=== PATIENT | female | born 1960 | race Caucasian/White ===

== ENCOUNTER 2016-09-20 06:48 | Observation (INO) ==
[2016-09-20] MEDS ORDERED: Ondansetron 4 MG/2 ML VIAL IVP ONE (07:11)
[2016-09-20] MEDS ORDERED: *HR* Morphine 2 MG/ML SYRINGE IVP ONE (07:11)
--- NOTE | 2016-09-20 07:15 | Emergency Department Note ---
Disposition Clinical Impression: Chest pain Qualifiers: Chest pain type: precordial pain Qualified Code(s): R07.2 - Precordial pain Disposition: Admitted As Inpatient Condition: Good Referrals: Nasreen Sofia CNP [Primary Care Provider] - Forms: ED Satisfaction Letter Chest Pain HPI - General Chief Complaint: ED Chest Pain Stated Complaint: chest/back pain Time Seen by Provider: 09/20/16 07:10 Source: patient, EMS Mode of arrival: EMS Limitations: no limitations Vital Signs Reviewed: Yes Nursing Notes Reviewed: Yes - History of Present Illness HPI Narrative: 56-year-old female who presents with chest pain that woke her up from sleep at 1 AM this morning. The pain is substernal and left sided. It radiates through to her back between her shoulder blades. It was initially somewhat sharp, it is now pressure-like. She states it was a level "20" when it started. She states she has taken for some sublingual nitroglycerin, now the pain is pressure -like and is a level II. No shortness of breath. No nausea or diaphoresis. She has a history of coronary artery disease and myocardial infarction. The pain feels like her previous cardiac chest pain. 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 The patient states she has not had a stress test and "a long time". She states it been more than 5 years. She does her exactly when. Pt complaint: chest pain Onset (ago): hour(s) (6) Duration: constant Onset: during rest Pain Location: substernal, left chest Severity: mild Severity scale (1-10): 3 Quality: tightness, sharp Improves with: nitroglycerin Worsens with: nothing Context: other (Coronary artery disease, coronary artery bypass graft, myocardial infarction.) Associated symptoms: Denies: nausea, diaphoresis, dyspnea Treatments prior to arrival chest pain: nitroglycerin - Related Data Home Medications Medication Instructions Recorded Confirmed Atorvastatin [Lipitor] 40 mg PO HS 09/20/16 09/20/16 Cephalexin [Keflex] 500 mg PO TID 09/20/16 09/20/16 Cholecalciferol (Vitd3)/Vit K2 [D3 1 each PO DAILY 09/20/16 09/20/16 + K2 Dots 1,000 Units Tab] Folic Acid 1 mg PO DAILY 09/20/16 09/20/16 Hydroxyzine HCl 25 mg PO DAILY 09/20/16 09/20/16 Allergies Allergy/AdvReac Type Severity Reaction Status Date / Time No Known Allergies Allergy Verified 04/16/15 14:55 All systems ED: reviewed and negative except as stated. Constitutional: Denies: fever, chills ENT ED: Denies: ear pain, throat pain Cardiovascular: Reports: chest pain. Denies: palpitations Respiratory: Denies: cough, dyspnea, wheezes Gastrointestinal: Denies: abdominal pain, nausea, vomiting Genitourinary: Denies: urgency, dysuria Musculoskeletal: Reports: back pain Neurological: Denies: headache, weakness, numbness, paresthesias Chest Pain PMH - Past Medical History Medical history: Reports: coronary artery disease, diabetes, hyperlipidemia, hypertension, myocardial infarction Surgical history: Reports: appendectomy Psychiatric history: Reports: anxiety, depression, prior suicide attempt, previous psychiatric hospitalization DEBONER history: Reports: no DEBONER history, other - Social History Smoking Status: Current every day smoker Alcohol use: Reports: rarely Drug use: Reports: marijuana Physical Exam - General Limitations: no limitations General appearance: alert, in no apparent distress - Head Head exam: atraumatic, normocephalic - Eye Eye exam: Present: PERRL, EOMI. Absent: scleral icterus, conjunctival injection - ENT ENT exam: normal oropharynx, mucous membranes moist - Neck Neck exam: Present: normal inspection, full ROM, trachea midline. Absent: tenderness, lymphadenopathy, thyromegaly - Chest Chest inspection: Present: normal inspection, symmetric chest wall rise. Absent : tenderness - Respiratory Respiratory exam: Present: normal lung sounds bilaterally. Absent: respiratory distress, wheezes - Cardiovascular Cardiovascular exam: Present: regular rate, normal rhythm, normal heart sounds - Abdominal Exam Abdominal exam: Present: soft, Non-Tender, normal bowel sounds. Absent: organomegaly, mass - Extremities Exam Extremities exam: Present: normal inspection, full ROM, normal capillary refill. Absent: tenderness, pedal edema, calf tenderness - Back Exam Back exam: Absent: CVA tenderness (R), CVA tenderness (L) - Neurological Exam Neurological exam: Present: alert, oriented X3. Absent: motor sensory deficit - Psychiatric Psychiatric exam: Present: normal affect, normal mood - Skin Skin exam: Present: warm, dry, intact, normal color. Absent: cyanosis, diaphoresis Course Course Narrative: 0426: With return of all testing, care has been discussed with the patient, her and Dr. Ashraf. Verbal orders have been obtained for observation at this facility. She remains in stable condition without significant ongoing pain. Vital Signs Temperature 98.2 F 09/20/16 06:52 Pulse Rate 84 09/20/16 06:52 Respiratory Rate 18 09/20/16 06:52 Blood Pressure 138/95 09/20/16 06:52 O2 Sat by Pulse Oximetry 98 09/20/16 06:52 Temperature 98.2 F 09/20/16 06:53 Pulse Rate 101 09/20/16 10:52 Respiratory Rate 18 09/20/16 10:52 Blood Pressure 142/90 09/20/16 10:52 O2 Sat by Pulse Oximetry 98 09/20/16 10:52 Oxygen Delivery Oxygen Delivery Room Air Chest Pain - MDM Narrative Medical decision making narrative: Differential is not limited to unstable angina, myocardial infarction, chest wall pain, pneumothorax, pulmonary embolus, pleurisy. - Differential Diagnosis Likely: stable angina, unstable angina pectoris, atypical chest pain, chest pain - Lab Data Lab results reviewed: Yes I reviewed the patient's lab results. Result diagrams: 09/20/16 07:17 09/20/16 07:17 Lab Results 09/20/16 09/20/16 09/20/16 Range/Units 07:17 07:17 07:17 WBC 13.1 H (4.3-11.1) K/mcL RBC 5.17 H (3.82-4.97) M/mcL Hgb 14.8 (11.5-15.4) g/dL Hct 42.3 (35.3-44.9) % MCV 81.8 L (83.0-100.0) fL MCH 28.6 (28.0-33.3) pg MCHC 35.0 (31.6-35.5) g/dL RDW 14.2 (11.5-14.5) % Plt Count 412 H (140-400) K/mcL MPV 10.6 (9.4-12.4) fL Immature Gran % 0.2 (0-4) % Seg Neutrophils % 53.0 % Lymphocytes % 32.5 % Monocytes % 8.5 % Eosinophils % 5.1 % Basophils % 0.7 % Neutrophils # 6.9 (1.6-8.9) K/mcL Lymphocytes # 4.3 (0.6-4.6) K/mcL Monocytes # 1.1 (0.0-1.3) K/mcL Eosinophils # 0.7 H (0.0-0.6) K/mcL Basophils # 0.1 (0.0-0.2) K/mcL PT (9.4-12.1) Seconds INR D-Dimer 1544 H (0-500) ng/mLFEU Sodium 132 L (136-145) mEq/L Potassium 3.5 (3.5-4.5) mEq/L Chloride 89 L (98-109) mEq/L Carbon Dioxide 29 (19-29) mEq/L BUN 13 (7-20) mg/dL Creatinine 0.67 (0.57-1.11) mg/dL Est GFR ( Amer) > 60 (> 60) Est GFR (Non-Af Amer) > 60 (> 60) BUN/Creatinine Ratio 19 (6-26) Glucose 118 H (70-99) mg/dL Calculated Osmolality 275 L (280-300) Calcium 10.3 (8.6-10.8) mg/dL Total Bilirubin 0.3 (0.2-1.2) mg/dL AST 12 (5-34) Units/L ALT 12 (0-55) Units/L Alkaline Phosphatase 93 (38-126) Units/L Troponin I (0-0.03) ng/mL B-Natriuretic Peptide (0-100) pg/mL Serum Total Protein 8.2 (6.0-8.3) g/dL Albumin 3.5 (3.5-5.0) g/dL Globulin 4.7 H (2.4-3.5) g/dL Albumin/Globulin Ratio 0.7 L (1.1-2.2) 09/20/16 09/20/16 09/20/16 Range/Units 07:17 07:17 07:17 WBC (4.3-11.1) K/mcL RBC (3.82-4.97) M/mcL Hgb (11.5-15.4) g/dL Hct (35.3-44.9) % MCV (83.0-100.0) fL MCH (28.0-33.3) pg MCHC (31.6-35.5) g/dL RDW (11.5-14.5) % Plt Count (140-400) K/mcL MPV (9.4-12.4) fL Immature Gran % (0-4) % Seg Neutrophils % % Lymphocytes % % Monocytes % % Eosinophils % % Basophils % % Neutrophils # (1.6-8.9) K/mcL Lymphocytes # (0.6-4.6) K/mcL Monocytes # (0.0-1.3) K/mcL Eosinophils # (0.0-0.6) K/mcL Basophils # (0.0-0.2) K/mcL PT 12.5 H (9.4-12.1) Seconds INR 1.2 D-Dimer (0-500) ng/mLFEU Sodium (136-145) mEq/L Potassium (3.5-4.5) mEq/L Chloride (98-109) mEq/L Carbon Dioxide (19-29) mEq/L BUN (7-20) mg/dL Creatinine (0.57-1.11) mg/dL Est GFR ( Amer) (> 60) Est GFR (Non-Af Amer) (> 60) BUN/Creatinine Ratio (6-26) Glucose (70-99) mg/dL Calculated Osmolality (280-300) Calcium (8.6-10.8) mg/dL Total Bilirubin (0.2-1.2) mg/dL AST (5-34) Units/L ALT (0-55) Units/L Alkaline Phosphatase (38-126) Units/L Troponin I 0.00 (0-0.03) ng/mL B-Natriuretic Peptide < 10 (0-100) pg/mL Serum Total Protein (6.0-8.3) g/dL Albumin (3.5-5.0) g/dL Globulin (2.4-3.5) g/dL Albumin/Globulin Ratio (1.1-2.2) 09/20/16 Range/Units 09:13 WBC (4.3-11.1) K/mcL RBC (3.82-4.97) M/mcL Hgb (11.5-15.4) g/dL Hct (35.3-44.9) % MCV (83.0-100.0) fL MCH (28.0-33.3) pg MCHC (31.6-35.5) g/dL RDW (11.5-14.5) % Plt Count (140-400) K/mcL MPV (9.4-12.4) fL Immature Gran % (0-4) % Seg Neutrophils % % Lymphocytes % % Monocytes % % Eosinophils % % Basophils % % Neutrophils # (1.6-8.9) K/mcL Lymphocytes # (0.6-4.6) K/mcL Monocytes # (0.0-1.3) K/mcL Eosinophils # (0.0-0.6) K/mcL Basophils # (0.0-0.2) K/mcL PT (9.4-12.1) Seconds INR D-Dimer (0-500) ng/mLFEU Sodium (136-145) mEq/L Potassium (3.5-4.5) mEq/L Chloride (98-109) mEq/L Carbon Dioxide (19-29) mEq/L BUN (7-20) mg/dL Creatinine (0.57-1.11) mg/dL Est GFR ( Amer) (> 60) Est GFR (Non-Af Amer) (> 60) BUN/Creatinine Ratio (6-26) Glucose (70-99) mg/dL Calculated Osmolality (280-300) Calcium (8.6-10.8) mg/dL Total Bilirubin (0.2-1.2) mg/dL AST (5-34) Units/L ALT (0-55) Units/L Alkaline Phosphatase (38-126) Units/L Troponin I 0.01 (0-0.03) ng/mL B-Natriuretic Peptide (0-100) pg/mL Serum Total Protein (6.0-8.3) g/dL Albumin (3.5-5.0) g/dL Globulin (2.4-3.5) g/dL Albumin/Globulin Ratio (1.1-2.2) - Radiology Data Radiology results reviewed: Yes I reviewed the patient's radiology results. Impressions Chest X-Ray 09/20/16 07:11 IMPRESSION: No acute cardiopulmonary abnormality identified. D/ / Binh Nichole MD / Binh Nichole MD Interpreting Provider: Binh Nichole MD Chest CTA 09/20/16 08:15 IMPRESSION: No evidence of pulmonary embolism or acute pulmonary abnormality. D/ / Abraham Santiago MD / Abraham Santiago MD Interpreting Provider: Abraham Santiago MD - EKG Data EKG attestation: Yes I reviewed and interpreted this EKG. EKG results narrative: Sinus rhythm, rate of 78, age indeterminate septal infarct, no acute ST-T wave changes. Rhythm strip shows sinus rhythm with rate of 78, W[place] interval 169 ms, QRS of 82 ms with no other ectopy as interpreted by me. This is compared to tracing dated 04/16/15, no significant change. S.Artemio - MikaAKeonRKeon Transition of Care: Discussed with Dr. Arboleda at 0755. Situation: Demographics, MOA Background: Presenting Complaint, Relevant PMH, Meds, & Allergies Assessment: Vital Signs, Course and respsone to treatment, Exam Concerns, Pertinant Lab Results, Outstanding Labs Recommendation: Recommendation based on pending studies, treatments, or consults S.B.A.RKeon Report Given to: Dr. Nkechi Roberts Repor Time: 07:55
[2016-09-20 07:24] LABS: Basophils # 0.1 K/mcL (0.0-0.2); Basophils % 0.7 %; Eosinophils # 0.7 K/mcL (0.0-0.6); Eosinophils % 5.1 %; Hematocrit 42.3 % (35.3-44.9); Hemoglobin 14.8 g/dL (11.5-15.4); Immature Granulocytes % 0.2 % (0-4); Lymphocytes # 4.3 K/mcL (0.6-4.6); Lymphocytes % 32.5 %; Mean Corpuscular Hemoglobin 28.6 pg (28.0-33.3); Mean Corpuscular Volume 81.8 fL (83.0-100.0); Mean Platelet Volume 10.6 fL (9.4-12.4); Monocytes # 1.1 K/mcL (0.0-1.3); Monocytes % 8.5 %; Neutrophils # 6.9 K/mcL (1.6-8.9); Platelet Count 412 K/mcL (140-400); Red Blood Count 5.17 M/mcL (3.82-4.97); Red Cell Distribution Width 14.2 % (11.5-14.5)
[2016-09-20 07:28] LABS: INR 1.2; Prothrombin Time 12.5 Seconds (9.4-12.1)
[2016-09-20 08:00] LABS: Alanine Aminotransferase 12 Units/L (0-55); Albumin 3.5 g/dL (3.5-5.0); Albumin/Globulin Ratio 0.7 (1.1-2.2); Alkaline Phosphatase 93 Units/L (38-126); Aspartate Amino Transferase 12 Units/L (5-34); BUN/Creatinine Ratio 19 (6-26); Bilirubin,Total 0.3 mg/dL (0.2-1.2); Blood Urea Nitrogen 13 mg/dL (7-20); Calcium 10.3 mg/dL (8.6-10.8); Carbon Dioxide 29 mEq/L (19-29); Chloride 89 mEq/L (98-109); Globulin 4.7 g/dL (2.4-3.5); Glucose 118 mg/dL (70-99); Osmolality,Calculated 275 (280-300); Potassium 3.5 mEq/L (3.5-4.5); Sodium 132 mEq/L (136-145); Total Protein 8.2 g/dL (6.0-8.3); eGFR For African Americans > 60 (> 60); eGFR For Non-African Americans > 60 (> 60)
[2016-09-20] MEDS ORDERED: Naloxone 0.4 MG/ML INJ IVP PRN (11:57)
[2016-09-20] MEDS ORDERED: Acetaminophen 325 MG TABLET PO PRN (11:57)
[2016-09-20] MEDS ORDERED: Ondansetron 4 MG/2 ML VIAL IVP PRN (11:57)
[2016-09-20] MEDS ORDERED: MOM Conc 10 ML UD.LIQ PO PRN (11:57)
--- NOTE | 2016-09-20 17:17 | Internal Med History&Physical ---
Date of Encounter: 09/20/16 Time of Encounter: 16:45 Assessment and Plan (1) Chest pain Current visit: Yes Status: Acute Repeat cardiac enzymes have been ordered through emergency room. Chest CTA was unremarkable. Further workup will be done as needed. Qualifiers: Chest pain type: precordial pain Qualified Code(s): R07.2 - Precordial pain (2) Tobacco abuse Current visit: Yes Status: Chronic Room air oxymetry will be ordered prior to discharge. Internal Medicine - H&P: HPI Chief complaint: Chest pain Admitted From: Home Plans for Post Hospital Care: Home History of present illness: Ms. Ramos is a 56 year old female who came to emergency room stating she had a chest pain approximately 0100 that awakened her from sleep. She describes it as a sharp sensation in her mid left chest area. She took a nitroglycerin pill with improvement but not completely resolution. She sat in a chair and used 3 more nitroglycerin pills over the next few hours. She decided to come to emergency room when the pain did not completely resolve. She was evaluated and admitted to [facility] for ongoing care needs. She states the discomfort now is no longer sharp but feels more like a "pressure ". There was considerable dyspnea associated with the discomfort at time of onset but that has resolved. There was no significant cough. Her cardiovascular history is significant for hypertension. She has known ASHD status post MD 2001 followed by a CABG surgery. She does not know how many coronary vessels were bypassed. She believes her most recent heart catheter was approximately 2011 without recommendation for further intervention. She thinks she has a diagnosis of CHF. She had left carotid endarterectomy several years ago. She denies DVT or pulmonary embolus. Past Med Surg Social Fam HX - Past Medical History Medical history: coronary artery disease, diabetes, hyperlipidemia, hypertension , myocardial infarction Psychiatric history: anxiety, depression, prior suicide attempt, previous psychiatric hospitalization - Past Surgical History Surgical History: appendectomy - Social History Smoking Status: Current every day smoker Smokeless Tobacco Status: No Alcohol use: rarely Drug use: marijuana Internal Medicine - H&P: Meds Atorvastatin [Lipitor] 40 mg PO HS 09/20/16 [History] Cephalexin [Keflex] 500 mg PO TID 09/20/16 [History] Cholecalciferol (Vitd3)/Vit K2 [D3 + K2 Dots 1,000 Units Tab] 1 each PO DAILY [History] Folic Acid 1 mg PO DAILY 09/20/16 [History] Hydroxyzine HCl 25 mg PO DAILY 09/20/16 [History] Allergies No Known Allergies Allergy (Verified 04/16/15 14:55) All Systems PM: A 10-system review of systems was performed and is negative for pertinent findings except as documented above in the HPI. Review of systems: Gen.: She states her weight has been stable for many years Cardiovascular: As per history of present illness Respiratory: She smoked since age 9 up to 1 pack per day. She has not had PFTs and does not wear home oxygen GI: She denies disorders of her liver gallbladder or exocrine pancreas : She denies hematuria dysuria or kidney stones Neurologic: She states following a heart attack in 2001 she had cardiopulmonary arrest. She reports significant memory problems since then with gradual improvement over the years. She denies large distribution strokes or seizures Endocrine: She was diagnosed with DM 2 approximately 2015. She has hyperlipidemia but denies thyroid disease Hematology/oncology: She denies blood disorders cancers or anemia Psychiatric: She has anxiety and depression denies other mental health issues Musk skeletal: She denies arthritis gout or other bone joint or muscle disorders. - Constitutional Vitals: Temp Pulse Resp BP Pulse Ox 98.1 F 84 16 128/76 96 09/20/16 14:30 09/20/16 14:30 09/20/16 14:30 09/20/16 14:30 09/20/16 14:30 Exam: Gen.: She is a well-developed well-nourished female sitting in bed who appears in no acute distress at present time HEENT: Head is atraumatic and normocephalic. Eyes: EOMI. There is no scleral icterus. Mouth: Mucosa is moist. Neck: Supple and nontender. There is no thyromegaly or adenopathy noted. Heart: Regular without murmurs gallops or ectopics. Lungs: No wheezes or crackles are heard. Chest: She is nontender in her chest wall to palpation Abdomen: Soft and nontender. No masses or guarding are noted. Extremities: There is no cyanosis edema or clubbing noted. Dorsalis pedis and posterior tibial pulses are trace palpable bilaterally. Neurologic: Mental status: She is talkative and a good historian. Cranial nerves: Smile is symmetric. Forehead wrinkles bilaterally. Tongue protrudes midline. EOMI. Motor: There is no pronator drift. Cerebellar: Finger to nose is intact bilaterally. Skin: Warm and dry Internal Med - H&P Results - Labs CBC & Chem 7: 09/20/16 07:17 09/20/16 07:17 Labs: Cardiac Enzymes 09/20/16 Range/Units 15:24 Troponin I 0.01 (0-0.03) ng/mL
--- NOTE | 2016-09-20 18:15 | Electrocardiograph Report ---
[address] [place], [place] [address] Test Date: 2016-09-20 Pat Name: Claudia Ramos Department: [id number] Room: [facility] Gender: F Reamer Hand: [id number] : 1960 Requested By: Hernan Das Order Number: [id number] Reading MD: Juliana Jennings Measurements Intervals [place] Rate: 78 P: 52 TX: 169 QRS: 37 QRSD: 82 T: 85 QT: 378 QTc: 412 Interpretive Statements SINUS RHYTHM SEPTAL MYOCARDIAL INFARCTION, OF INDETERMINATE AGE Electronically Signed On 09-20-2016 18:13:48 EDT by Juliana Jennings
[2016-09-20] MEDS: Nitroglycerin 0.4 MG TAB.SUBL SL PRN ×2 (22:40→22:47)
[2016-09-21 07:46] VITALS: BP 143/87
[2016-09-21] MEDS ORDERED: Cholecalciferol (D-3) 1,000 UNIT TABLET PO SCH (09:00)
[2016-09-21] MEDS ORDERED: Folic Acid 1 MG TABLET PO SCH (09:00)
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
== END 2016-09-21 11:40 | disposition home or self-care (01) ==
LOC: EMEROOPIK 06:48 → INPPIK 06:48
PROVIDERS: ADMIT Internal Medicine; ATTEND Internal Medicine

== ENCOUNTER 2017-08-03 21:21 | Observation (INO) ==
[2017-08-03] MEDS ORDERED: Nitroglycerin 1 INCH/GM PACKET TP ONE (21:26)
[2017-08-03] MEDS ORDERED: *HR* Metoprolol 5 MG/5 ML VIAL IVP ONE (21:26)
--- NOTE | 2017-08-03 21:28 | Emergency Department Note ---
Disposition Clinical Impression: Chest pain Disposition: Transfer [facility] Condition: Fair Time of Disposition: 00:30 ([facility]) Chest Pain HPI - General Chief Complaint: ED Chest Pain Stated Complaint: chest pain Time Seen by Provider: 08/03/17 21:25 Source: patient, EMS Mode of arrival: EMS Limitations: no limitations Vital Signs Reviewed: Yes Nursing Notes Reviewed: Yes - History of Present Illness HPI Narrative: 57-year-old has been having intermittent substernal chest pain over the past couple of days no radiation neck or jaw patient states though she becomes a little nauseated with that she denies fever chills lightheadedness dizziness denies any actual syncope patient states that she feels very uneasy with this she denies any rashes or lesions Patient admits to being out of medications for at least 2 weeks or better and has not had diabetic hypertension or gastric medicines during this period of time had abrupt withdrawal of psych meds Pt complaint: chest pain Onset (ago): day(s) Duration: intermittent Onset: during rest, during exertion, awoke with symptoms Pain Location: substernal Severity: moderate Severity scale (1-10): 4 Quality: aching Improves with: nothing Worsens with: nothing Associated symptoms: Reports: nausea, diaphoresis, dyspnea. Denies: vomiting, sense of impending doom, syncope, palpitations, fever, cough, leg swelling Treatments prior to arrival chest pain: aspirin, nitroglycerin, oxygen - Related Data Home Medications Medication Instructions Recorded Confirmed Atorvastatin [Lipitor] 40 mg PO HS 01/28/17 01/28/17 BuPROPion [Wellbutrin] 100 mg PO DAILY 01/28/17 01/28/17 Cholecalciferol (Vitamin D3) 1,000 unit PO DAILY 01/28/17 01/28/17 [Vitamin D] Folic Acid 1 mg PO DAILY 01/28/17 01/28/17 Lisinopril [Zestril] 10 mg PO DAILY 01/28/17 01/28/17 Omeprazole 20 mg PO DAILY 01/28/17 01/28/17 metFORMIN [Glucophage] 1,000 mg PO HS 01/28/17 01/28/17 Previous Rx's Medication Instructions Recorded Acetaminophen/Butalbital/Caffe 1 each PO Q6HR #20 tablet 01/29/17 [Fioricet] Lisinopril [Zestril] 10 mg PO DAILY #14 tablet 01/29/17 Potassium Effervescent [Klyte] 25 meq PO DAILY #7 tablet.eff 01/29/17 Allergies Allergy/AdvReac Type Severity Reaction Status Date / Time No Known Allergies Allergy Verified 04/16/15 14:55 All systems ED: reviewed and negative except as stated. Review of Systems: As Per HPI Constitutional: Denies: fever, chills, weakness Eyes: Denies: eye pain, eye discharge ENT ED: Denies: ear pain, throat pain Cardiovascular: Reports: chest pain, syncope (near). Denies: palpitations Respiratory: Denies: cough, dyspnea Gastrointestinal: Denies: abdominal pain, nausea, vomiting Genitourinary: Denies: urgency, dysuria Musculoskeletal: Denies: back pain, neck pain Integumentary: Denies: rash, abrasion Neurological: Reports: weakness. Denies: headache Psychiatric: Denies: anxiety Endocrine: Denies: fatigue Hematological/Lymphatic: Denies: easy bleeding Allergic/Immunologic: Denies: facial swelling Chest Pain PMH - Past Medical History Medical history: Reports: coronary artery disease, diabetes, hyperlipidemia, hypertension, myocardial infarction Surgical history: Reports: appendectomy Psychiatric history: Reports: anxiety, depression, prior suicide attempt, previous psychiatric hospitalization TELETYPE TELEGRAPHER history: Reports: no TELETYPE TELEGRAPHER history, other - Social History Smoking Status: Current every day smoker Alcohol use: Reports: rarely Drug use: Reports: marijuana Physical Exam - General Limitations: no limitations General appearance: alert, in no apparent distress, anxious - Head Head exam: atraumatic, normocephalic, normal inspection - Eye Eye exam: Present: normal appearance, PERRL, EOMI - ENT ENT exam: normal exam, normal oropharynx, mucous membranes moist, TM's normal bilaterally, normal external ear exam - Neck Neck exam: Present: normal inspection, full ROM, trachea midline - Chest Chest inspection: Present: normal inspection, symmetric chest wall rise - Respiratory Respiratory exam: Present: normal lung sounds bilaterally - Cardiovascular Cardiovascular exam: Present: regular rate, normal rhythm, normal heart sounds - Abdominal Exam Abdominal exam: Present: soft, Non-Tender, normal bowel sounds. Absent: mass, pulsatile mass - Extremities Exam Extremities exam: Present: normal inspection, full ROM, normal capillary refill. Absent: tenderness, pedal edema, joint swelling - Expanded Upper Extremity Exam Shoulder exam: Present: normal inspection, full ROM Arm exam: Present: normal inspection, full ROM Elbow exam: Present: normal inspection, full ROM Forearm/Wrist exam: Present: normal inspection, full ROM Hand exam: Present: normal inspection, full ROM Neurosensory exam: Normal: radial nerve, ulnar nerve, median nerve Vascular exam: Normal: capillary refill, radial pulse, ulnar pulse - Expanded Lower Extremity Exam Hip/Pelvis exam: Present: normal inspection Upper leg exam: Present: normal inspection, full ROM Knee exam: Present: normal inspection, full ROM Lower leg exam: Present: normal inspection, full ROM Ankle exam: Present: normal inspection, full ROM Foot/toe exam: Present: normal inspection, full ROM Neurovascular/Tendon exam: Present: normal capillary refill, normal fine/light touch. Absent: motor deficit, sensory deficit, tendon deficit Gait: observed and normal - Back Exam Back exam: Present: normal inspection, full ROM. Absent: muscle spasm - Neurological Exam Neurological exam: Present: alert, oriented X3, CN II-XII intact, normal gait - Psychiatric Psychiatric exam: Present: normal affect, normal mood - Skin Skin exam: Present: warm, dry, intact, normal color Course Course Narrative: She was immediately seen and examined patient had received aspirin and nitroglycerin in route was completely asymptomatic upon presentation to the emergency room with the patient resting comfortably and having no further chest pain or discomfort sleeping intermittently she was admitted for observation to have serial enzymes rule out to make sure there is no underlying cardiac event agreeable with Dr. Ashraf Vital Signs Temperature 98.9 F 08/03/17 21:27 Pulse Rate 79 08/03/17 21:27 Respiratory Rate 15 08/03/17 21:27 Blood Pressure 139/99 08/03/17 21:27 O2 Sat by Pulse Oximetry 96 08/03/17 21:27 Temperature 98.2 F 08/04/17 03:38 Pulse Rate 61 08/04/17 03:38 Respiratory Rate 16 08/04/17 03:38 Blood Pressure 165/83 08/04/17 03:38 O2 Sat by Pulse Oximetry 100 08/04/17 03:38 Oxygen Delivery Oxygen Delivery Room Air Chest Pain - MDM Narrative Medical decision making narrative: Her pulmonary etiology pneumonia or bronchitis gallbladder - Differential Diagnosis Likely: atypical chest pain, st elevation myocardial infraction, costalchondritis, chest pain - Medical Records Medical records reviewed: Yes I reviewed the patient's medical records. - Lab Data Lab results reviewed: Yes I reviewed the patient's lab results. Result diagrams: 08/03/17 21:37 08/03/17 21:37 Lab Results 08/03/17 08/03/17 08/03/17 Range/Units 21:37 21:37 21:37 WBC 13.3 H (4.3-11.1) K/mcL RBC 5.25 H (3.82-4.97) M/mcL Hgb 15.0 (11.5-15.4) g/dL Hct 44.0 (35.3-44.9) % MCV 83.8 (83.0-100.0) fL MCH 28.6 (28.0-33.3) pg MCHC 34.1 (31.6-35.5) g/dL RDW 13.7 (11.5-14.5) % Plt Count 433 H (140-400) K/mcL MPV 10.8 (9.4-12.4) fL Immature Gran % 0.3 (0-4) % Seg Neutrophils % 54.3 % Lymphocytes % 36.2 % Monocytes % 6.3 % Eosinophils % 2.2 % Basophils % 0.7 % Neutrophils # 7.2 (1.6-8.9) K/mcL Lymphocytes # 4.8 H (0.6-4.6) K/mcL Monocytes # 0.8 (0.0-1.3) K/mcL Eosinophils # 0.3 (0.0-0.6) K/mcL Basophils # 0.1 (0.0-0.2) K/mcL PT 12.9 H (9.4-12.1) Seconds INR 1.2 APTT 35.2 (26.0-36.0) Seconds Sodium (136-145) mEq/L Potassium (3.5-5.1) mEq/L Chloride (98-107) mEq/L Carbon Dioxide (23-29) mEq/L BUN (6-20) mg/dL Creatinine (0.60-1.20) mg/dL Est GFR ( Amer) (> 60) Est GFR (Non-Af Amer) (> 60) BUN/Creatinine Ratio (6-26) Glucose (70-105) mg/dL Calculated Osmolality (280-300) Calcium (8.6-10.3) mg/dL Total Bilirubin (0.3-1.0) mg/dL AST (13-39) Units/L ALT (7-52) Units/L Alkaline Phosphatase (34-104) Units/L Troponin I (< 0.04) ng/mL Serum Total Protein (6.4-8.9) g/dL Albumin (3.5-5.7) g/dL Globulin (2.4-3.5) g/dL Albumin/Globulin Ratio (1.1-2.2) TSH (0.340-5.600) mcIU/mL 08/03/17 08/03/17 Range/Units 21:37 21:37 WBC (4.3-11.1) K/mcL RBC (3.82-4.97) M/mcL Hgb (11.5-15.4) g/dL Hct (35.3-44.9) % MCV (83.0-100.0) fL MCH (28.0-33.3) pg MCHC (31.6-35.5) g/dL RDW (11.5-14.5) % Plt Count (140-400) K/mcL MPV (9.4-12.4) fL Immature Gran % (0-4) % Seg Neutrophils % % Lymphocytes % % Monocytes % % Eosinophils % % Basophils % % Neutrophils # (1.6-8.9) K/mcL Lymphocytes # (0.6-4.6) K/mcL Monocytes # (0.0-1.3) K/mcL Eosinophils # (0.0-0.6) K/mcL Basophils # (0.0-0.2) K/mcL PT (9.4-12.1) Seconds INR APTT (26.0-36.0) Seconds Sodium 133 L (136-145) mEq/L Potassium 2.9 L (3.5-5.1) mEq/L Chloride 93 L (98-107) mEq/L Carbon Dioxide 28 (23-29) mEq/L BUN 18 (6-20) mg/dL Creatinine 0.68 (0.60-1.20) mg/dL Est GFR ( Amer) > 60 (> 60) Est GFR (Non-Af Amer) > 60 (> 60) BUN/Creatinine Ratio 26 (6-26) Glucose 152 H (70-105) mg/dL Calculated Osmolality 281 (280-300) Calcium 10.1 (8.6-10.3) mg/dL Total Bilirubin 0.3 (0.3-1.0) mg/dL AST 26 (13-39) Units/L ALT 28 (7-52) Units/L Alkaline Phosphatase 95 (34-104) Units/L Troponin I < 0.03 (< 0.04) ng/mL Serum Total Protein 7.9 (6.4-8.9) g/dL Albumin 4.1 (3.5-5.7) g/dL Globulin 3.8 H (2.4-3.5) g/dL Albumin/Globulin Ratio 1.1 (1.1-2.2) TSH 1.304 (0.340-5.600) mcIU/mL - Radiology Data Radiology results reviewed: Yes I reviewed the patient's radiology results. ITS Impressions Chest X-Ray 08/03/17 21:25 IMPRESSION: Stable portable study. D/ / Yari Vega Cha, MD / Yari Vega Cha, MD Interpreting Provider: Yari Vega Cha, MD - EKG Data EKG attestation: Yes I reviewed and interpreted this EKG. EKG results narrative: Sinus rhythm nonspecific T-wave changes rate 83 TN 155 QRS 82 QT 393 access 28 Heart Score - Score History: Slightly Suspicious Age: 45-65 Risk Factors: Equal/Greater than 3 risk factor or history of atherosclerotic disease Troponin: Less than normal limit Critical Care Time Critical Care Time: No
[2017-08-03 21:54] LABS: INR 1.2; Prothrombin Time 12.9 Seconds (9.4-12.1)
[2017-08-03 21:56] LABS: Basophils # 0.1 K/mcL (0.0-0.2); Basophils % 0.7 %; Eosinophils # 0.3 K/mcL (0.0-0.6); Eosinophils % 2.2 %; Immature Granulocytes % 0.3 % (0-4); Lymphocytes # 4.8 K/mcL (0.6-4.6); Lymphocytes % 36.2 %; Mean Corpuscular HGB Conc 34.1 g/dL (31.6-35.5); Mean Corpuscular Hemoglobin 28.6 pg (28.0-33.3); Mean Corpuscular Volume 83.8 fL (83.0-100.0); Mean Platelet Volume 10.8 fL (9.4-12.4); Monocytes # 0.8 K/mcL (0.0-1.3); Monocytes % 6.3 %; Neutrophils # 7.2 K/mcL (1.6-8.9); Platelet Count 433 K/mcL (140-400); Red Blood Count 5.25 M/mcL (3.82-4.97); Red Cell Distribution Width 13.7 % (11.5-14.5); Segmented Neutrophils % 54.3 %
[2017-08-03 22:05] LABS: Alanine Aminotransferase 28 Units/L (7-52); Albumin 4.1 g/dL (3.5-5.7); Albumin/Globulin Ratio 1.1 (1.1-2.2); Alkaline Phosphatase 95 Units/L (34-104); Aspartate Amino Transferase 26 Units/L (13-39); BUN/Creatinine Ratio 26 (6-26); Bilirubin,Total 0.3 mg/dL (0.3-1.0); Blood Urea Nitrogen 18 mg/dL (6-20); Calcium 10.1 mg/dL (8.6-10.3); Carbon Dioxide 28 mEq/L (23-29); Chloride 93 mEq/L (98-107); Globulin 3.8 g/dL (2.4-3.5); Glucose 152 mg/dL (70-105); Osmolality,Calculated 281 (280-300); Potassium 2.9 mEq/L (3.5-5.1); Sodium 133 mEq/L (136-145); Total Protein 7.9 g/dL (6.4-8.9); eGFR For Non-African Americans > 60 (> 60)
[2017-08-03] MEDS ORDERED: Ondansetron ODT 4 MG TAB.RAPDIS SL ONE (22:16)
[2017-08-03 22:20] LABS: Thyroid Stimulating Hormone 1.304 mcIU/mL (0.340-5.600)
[2017-08-04] MEDS ORDERED: Potassium Chloride Elixir 20 MEQ/15 ML UDC PO ONE (00:29)
[2017-08-04] MEDS ORDERED: Naloxone 0.4 MG/ML INJ IVP PRN (01:33)
[2017-08-04] MEDS ORDERED: Ondansetron 4 MG/2 ML VIAL IVP PRN (02:40)
[2017-08-04] MEDS: Nicotine 21 MG PATCH.TD24 TD SCH ×2 (03:58→10:49)
[2017-08-04 04:05] LABS: Basophils # 0.1 K/mcL (0.0-0.2); Basophils % 0.6 %; Eosinophils # 0.4 K/mcL (0.0-0.6); Eosinophils % 2.8 %; Hemoglobin 15.3 g/dL (11.5-15.4); Immature Granulocytes % 0.4 % (0-4); Lymphocytes % 32.2 %; Mean Corpuscular Hemoglobin 28.4 pg (28.0-33.3); Mean Corpuscular Volume 83.6 fL (83.0-100.0); Mean Platelet Volume 10.8 fL (9.4-12.4); Monocytes # 0.8 K/mcL (0.0-1.3); Monocytes % 6.7 %; Neutrophils # 7.2 K/mcL (1.6-8.9); Platelet Count 398 K/mcL (140-400); Red Blood Count 5.38 M/mcL (3.82-4.97); Red Cell Distribution Width 13.7 % (11.5-14.5); Segmented Neutrophils % 57.3 %
[2017-08-04 04:07] LABS: INR 1.2
[2017-08-04 04:09] LABS: Activated Partial Thrombo Time 35.4 Seconds (26.0-36.0)
[2017-08-04 05:39] LABS: Sodium 133 mEq/L (136-145)
[2017-08-04 05:40] LABS: BUN/Creatinine Ratio 27 (6-26); Blood Urea Nitrogen 17 mg/dL (6-20); Calcium 9.9 mg/dL (8.6-10.3); Carbon Dioxide 28 mEq/L (23-29); Chloride 96 mEq/L (98-107); Glucose 129 mg/dL (70-105); Osmolality,Calculated 279 (280-300); Potassium 3.7 mEq/L (3.5-5.1); eGFR For Non-African Americans > 60 (> 60)
[2017-08-04] MEDS ORDERED: *HR* Promethazine 25 MG/ML VIAL IVP PRN (06:29)
[2017-08-04] MEDS ORDERED: *HR* Morphine 2 MG/ML SYRINGE IVP ONE (06:29)
[2017-08-04] MEDS ORDERED: Nicotine 21 MG PATCH.TD24 TD SCH (09:00)
--- NOTE | 2017-08-04 12:48 | Internal Med History&Physical ---
Date of Encounter: 08/04/17 Time of Encounter: 12:05 Assessment and Plan (1) Chest pain Current visit: Yes Status: Acute Etiology not obvious. Repeat cardiac enzymes have been ordered. I will order d -dimer and proceed with chest CT since she has had the pain for 6-7 days. Qualifiers: Chest pain type: unspecified Qualified Code(s): R07.9 - Chest pain, unspecified (2) Leukocytosis Current visit: Yes Status: Chronic Review of past labs show frequent mild elevation of WBC. There is no left shift associated. Will not workup further at this time. Qualifiers: Leukocytosis type: unspecified Qualified Code(s): D72.829 - Elevated white blood cell count, unspecified Internal Medicine - H&P: HPI Chief complaint: Vomiting and chest/back pain Admitted From: Emergency Dept Plans for Post Hospital Care: Home History of present illness: Ms. Ramos is a 57 year old female who came to emergency room stating she had developed discomfort in her chest approximately July 29. The pain was constant and seemed to be worse and more noticeable in the evenings. She also had vomiting postprandially. There was no hematemesis. She reports a "pressure " sensation in her chest as well as back pain that was present. Following the and burial of her daughter's [id number] yesterday she came to emergency room. She was evaluated and admitted to [facility] floor for ongoing care needs. She states the pain is still present but has decreased in intensity. She denies previous similar pain. Her cardiovascular history is significant for hypertension and known ASHD status post ID [id number] followed by CABG surgery at a [facility]. She does not know how many vessels were bypassed. She believes her most recent heart catheter was approximately 2011 at [facility] without recommendation for further intervention. She thinks she has a diagnosis of CHF. She had left carotid endarterectomy remotely. She denies DVT or pulmonary embolus. Past Med Surg Social Fam HX - Past Medical History Medical history: coronary artery disease, diabetes, hyperlipidemia, hypertension , myocardial infarction Psychiatric history: anxiety, depression, prior suicide attempt, previous psychiatric hospitalization - Past Surgical History Surgical History: appendectomy - Social History Smoking Status: Current every day smoker Packs per day: 1 Smokeless Tobacco Status: No Alcohol use: rarely Drug use: marijuana - Family History Mother Living Status: Still Living Hx Family Endocrine Disorder: Yes (diabetes) Father Living Status: Hx Family Cancer: Yes Internal Medicine - H&P: Meds Atorvastatin [Lipitor] 40 mg PO HS 01/28/17 [History] BuPROPion [Wellbutrin] 100 mg PO DAILY 01/28/17 [History] Cholecalciferol (Vitamin D3) [Vitamin D] 1,000 unit PO DAILY 01/28/17 [History] Folic Acid 1 mg PO DAILY 01/28/17 [History] Lisinopril [Zestril] 10 mg PO DAILY 01/28/17 [History] Omeprazole 20 mg PO DAILY 01/28/17 [History] metFORMIN [Glucophage] 1,000 mg PO HS 01/28/17 [History] Acetaminophen/Butalbital/Caffe [Fioricet] 1 each PO Q6HR #20 tablet 01/29/17 [Rx ] Lisinopril [Zestril] 10 mg PO DAILY #14 tablet 01/29/17 [Rx] Potassium Effervescent [Klyte] 25 meq PO DAILY #7 tablet.eff 01/29/17 [Rx] 3 Allergy/AdvReac Type Severity Reaction Status Date / Time No Known Allergies Allergy Verified 04/16/15 14:55 All Systems PM: A 10-system review of systems was performed and is negative for pertinent findings except as documented above in the HPI. Review of systems: Gen.: Her weight has decreased from 81.647 kg on 09/20/2016 to 71.866 kg today Cardiovascular: As per history of present illness Respiratory: She smoked since age 9 up to 1 pack per day. She has not had PFTs and does not wear home oxygen GI: She denies disorders of her liver gallbladder or exocrine pancreas : She denies hematuria dysuria or kidney stones Neurologic: She states following a heart attack in 2002 she had cardiopulmonary arrest. She reports significant memory problems since resuscitation with gradual improvement over the years. She denies large distribution strokes or seizures Endocrine: She was diagnosed with DM 2 approximately 2016. She has hyperlipidemia but denies thyroid disease Hematology/oncology: She denies blood disorders cancers or anemia Psychiatric: She has anxiety and depression but denies other mental health issues Musk skeletal: She denies arthritis gout or other bone joint or muscle disorders. - Constitutional Vitals: Temp Pulse Resp BP Pulse Ox 97.4 F L 72 12 158/85 99 08/04/17 07:10 08/04/17 07:10 08/04/17 07:10 08/04/17 07:10 08/04/17 07:10 Exam: Gen.: She is a well-developed well-nourished female resting comfortably in bed who appears in no acute distress HEENT: Head is atraumatic and normocephalic. Eyes: EOMI. There is no sclerae icterus. Mouth: Mucosa is moist. Neck: Supple and nontender. There is no thyromegaly or adenopathy noted. She has a well-healed left carotid endarterectomy scar. Heart: Regular without murmurs gallops or ectopics Chest: She has minimal tenderness on costosternal joint compression. Lungs: No wheezes or crackles are heard. Abdomen: There is mild tenderness in the epigastric area to palpation. No masses or guarding are noted. Extremities: There is no cyanosis edema or clubbing noted. Dorsalis pedis and posterior tibial pulses are trace palpable bilaterally. Neurologic: Mental status: She is talkative and a fair historian. She does not remember some details of her history. Cranial nerves: Smile is symmetric. Forehead wrinkles bilaterally. Tongue protrudes midline. EOMI. Motor: There is no pronator drift. Cerebellar: Finger to nose is intact bilaterally. Skin: Warm and dry Internal Med - H&P Results - Labs CBC & Chem 7: 08/04/17 03:25 08/04/17 03:25 Labs: Short CBC 08/04/17 Range/Units 03:25 WBC 12.5 H (4.3-11.1) K/mcL Hgb 15.3 (11.5-15.4) g/dL Hct 45.0 H (35.3-44.9) % Plt Count 398 (140-400) K/mcL Neutrophils # 7.2 (1.6-8.9) K/mcL BMP 08/04/17 03:25 Sodium 133 L Potassium 3.7 D Chloride 96 L Carbon Dioxide 28 BUN 17 Creatinine 0.63 Glucose 129 H Calcium 9.9 Cardiac Enzymes 08/04/17 08/04/17 Range/Units 03:25 10:40 Troponin I < 0.03 < 0.03 (< 0.04) ng/mL
[2017-08-04] MEDS: Acetaminophen 325 MG TABLET PO PRN (17:08)
[2017-08-04] MEDS ORDERED: *HR* Metformin 500 MG TABLET PO SCH (21:00)
[2017-08-05 01:50] LABS: Bilirubin,Urine Negative (Negative); Blood,Urine Trace-lysed (Negative); Clarity,Urine Clear (Clear); Glucose,Urine (UA) Normal (Normal); Ketones,Urine Negative (Negative); Leukocyte Esterase,Urine Negative (Negative); Nitrite,Urine Negative (Negative); PH,Urine 5.5 pH Units (5.0-8.0); Protein,Urine Negative (Neg-Trace); Urobilinogen,Urine Normal (Normal)
[2017-08-05 01:54] LABS: Color,Urine Dark Yellow (Yellow)
[2017-08-05 01:55] LABS: Squamous Epithelial Cell,Urine Moderate per lpf (None-Few)
[2017-08-05 01:56] LABS: Bacteria,Urine Moderate per hpf (None-Few); Mucus,Urine Few (Few); RBC,Urine 0-3 per hpf (0-3)
[2017-08-05 01:58] LABS: WBC,Urine 0-3 per hpf (0-3)
[2017-08-05 01:59] LABS: Hyaline Casts,Urine Few per lpf (None-Few)
[2017-08-05] MEDS: Acetaminophen 325 MG TABLET PO PRN (04:24)
[2017-08-05 07:06] VITALS: BP 118/72
[2017-08-05] MEDS: Nicotine 21 MG PATCH.TD24 TD SCH (09:00)
--- NOTE | 2017-08-05 10:53 | Discharge Summary ---
Date of Encounter: 08/05/17 Time of Encounter: 10:45 - Discharge Diagnosis (1) Chest pain Priority: Primary Status: Resolved Qualifiers: Chest pain type: unspecified Qualified Code(s): R07.9 - Chest pain, unspecified (2) Leukocytosis Priority: Secondary Status: Chronic Qualifiers: Leukocytosis type: unspecified Qualified Code(s): D72.829 - Elevated white blood cell count, unspecified (3) Back pain Priority: Secondary Status: Acute Qualifiers: Back pain location: thoracic back pain Chronicity: acute Back pain laterality: midline Qualified Code(s): M54.6 - Pain in thoracic spine - Discharge Medications Home Medications: Atorvastatin [Lipitor] 40 mg PO HS 01/28/17 [History] BuPROPion [Wellbutrin] 100 mg PO DAILY 01/28/17 [History] Cholecalciferol (Vitamin D3) [Vitamin D3] 1,000 unit PO DAILY 01/28/17 [History] Folic Acid 1 mg PO DAILY 01/28/17 [History] Lisinopril [Zestril] 10 mg PO DAILY 01/28/17 [History] Omeprazole 20 mg PO DAILY 01/28/17 [History] metFORMIN [Glucophage] 1,000 mg PO HS 01/28/17 [History] Acetaminophen/Butalbital/Caffe [Fioricet] 1 each PO Q6HR #20 tablet 01/29/17 [Rx ] Lisinopril [Zestril] 10 mg PO DAILY #14 tablet 01/29/17 [Rx] Potassium Effervescent [Klyte] 25 meq PO DAILY #7 tablet.eff 01/29/17 [Rx] Allergies/Adverse Reactions: 3 Allergy/AdvReac Type Severity Reaction Status Date / Time No Known Allergies Allergy Verified 04/16/15 14:55 Procedures/tests Complete & Pending: Procedures Performed prior 72 hours Category Date Time Status CTA chest [CT angio chest] [CT] Routine Cat Scan 08/04/17 14:04 Completed Date of admission: 08/04/17 00:48 Primary care physician: Nasreen Sofia CNP - Patient Status Disposition: Home, Self-Care Condition: Fair Functional capacity at discharge: independent ambulation Overall status at discharge: patient is progressing back to baseline - Discharge Instructions Follow Up With: Nasreen Sofia CNP [Primary Care Provider] - 1 week - Diet and Activity Activity: resume usual activities as tolerated Diet: advance to your usual diet Hospital course: Ms. Ramos is a 57 year old female who came to emergency room stating she had developed discomfort in her chest approximately July 29. The pain was constant and seemed to be worse and more noticeable in the evenings. She also had vomiting postprandially. There was no hematemesis. She reports a "pressure " sensation in her chest as well as back pain that was present. Following the and burial of her daughter's [id number] yesterday she came to emergency room. She was evaluated and admitted to [facility] for ongoing care needs. Initial orders were written by the emergency room physician. I saw her on August 04 and performed the history and physical. Repeat cardiac enzymes showed no evidence of myocardial damage. D-dimer returned elevated at 880. A chest CTA was done to further evaluate. There was no evidence of PE or other acute process in the chest. Her chest pain had resolved by the day of discharge. The etiology of the chest pain was not determined with certainty. She complained of intermittent mid thoracic spine pain but no abnormality was seen on bony structures on the chest CT. She can take OTC pain medications and have further workup done as needed by her PCP. On August 05 I felt she was stable for discharge home. She will follow with her PCP within one week. I encouraged her to become a nonsmoker. Room air oximetry will be checked prior to discharge. - Time Spent with Patient Total time spent providing and/or coordinating discharge services: - Constitutional Vitals: Temp Pulse Resp BP Pulse Ox 97.6 F 61 18 118/72 100 08/05/17 07:04 08/05/17 07:04 08/05/17 07:04 08/05/17 07:04 08/05/17 07:04
--- NOTE | 2017-08-06 20:12 | Electrocardiograph Report ---
[address] [place], [place] [address] Test Date: 2017-08-03 Pat Name: Claudia Ramos Department: [id number] Room: [facility] Gender: F Chief Scientist: Jamaal : 1960 Requested By: Alejandra Zheng Order Number: [id number] Reading MD: Liam Moses MD Measurements Intervals [place] Rate: 83 P: 39 MD: 155 QRS: 28 QRSD: 82 T: 61 QT: 393 QTc: 433 Interpretive Statements SINUS RHYTHM CONSIDER ANTERIOR ISCHEMIA Electronically Signed On 08-06-2017 20:11:18 EST by Liam Moses MD
== END 2017-08-05 11:48 | disposition home or self-care (01) ==
LOC: INPPIK 21:21 → EMEROOPIK 21:21 → INPPIK 08-04 00:30
PROVIDERS: ADMIT Emergency Medicine; ATTEND Internal Medicine

== ENCOUNTER 2019-01-17 01:04 | Inpatient (IN) ==
--- NOTE | 2019-01-17 01:09 | Emergency Department Note ---
Disposition Clinical Impression: UTI (urinary tract infection), Leukocytosis, Hypomagnesemia, Hypokalemia Disposition: Admitted As Inpatient Condition: Fair Forms: ED Satisfaction Letter, Work/School Release Time of Disposition: 02:02 General Adult HPI - General Chief complaint: ED General Medical Stated complaint: HEAT Time Seen by Provider: 01/17/19 01:07 Source: patient, EMS Mode of arrival: EMS Limitations: no limitations Nursing Notes Reviewed: Yes Vital Signs Reviewed: Yes - History of Present Illness HPI Narrative: 58-year-old female presents today with one week history of urinary tract infection. She states it for 3 days she has had nausea and vomiting along with that. She states that she got too hot at her house and so she called EMS to vazquez ng her by ambulance tonight for evaluation. She states that she has not taken anything for the UTI she has not seen Or called her doctor about it. Should she did not take anything for the nausea or vomiting. She denies any blood in her urine she denies any blood in her vomit. She denies any back pain chest pain or abdominal pain. She denies any headache or blurred vision she denies any neck pain. She denies any rashes. Pain Scale: 0 - Related Data Home Medications Medication Instructions Recorded Confirmed Atorvastatin [Lipitor] 40 mg PO HS 01/28/17 01/17/19 BuPROPion [Wellbutrin] 100 mg PO DAILY 01/28/17 01/17/19 Cholecalciferol (Vitamin D3) 1,000 unit PO DAILY 01/28/17 01/17/19 [Vitamin D3] Folic Acid 1 mg PO DAILY 01/28/17 01/17/19 Lisinopril [Zestril] 10 mg PO DAILY 01/28/17 01/17/19 Omeprazole 20 mg PO DAILY 01/28/17 01/17/19 metFORMIN [Glucophage] 1,000 mg PO HS 01/28/17 01/17/19 Previous Rx's Medication Instructions Recorded Acetaminophen/Butalbital/Caffe 1 each PO Q6HR #20 tablet 01/29/17 [Fioricet] Lisinopril [Zestril] 10 mg PO DAILY #14 tablet 01/29/17 Potassium Effervescent [Klyte] 25 meq PO DAILY #7 tablet.eff 01/29/17 Allergies Allergy/AdvReac Type Severity Reaction Status Date / Time No Known Allergies Allergy Verified 04/16/15 14:55 Review of Systems: All other systems are negative except as noted/marked Chart generated with voice recognition software Nursing notes reviewed Old records reviewed Past Medical History - Past Medical History Attestation: Yes The following information was validated with the patient. Source: patient, old records reviewed, nursing notes reviewed Medical history: Reports: coronary artery disease, diabetes, hyperlipidemia, hypertension, myocardial infarction Surgical history: Reports: appendectomy Psychiatric history: Reports: anxiety, depression, prior suicide attempt, previous psychiatric hospitalization QUALITY AUDIT REPRESENTATIVE history: Reports: no QUALITY AUDIT REPRESENTATIVE history, other - Social History Smoking Status: Current every day smoker Smokeless Tobacco Status: No Alcohol use: Reports: rarely Drug use: Reports: marijuana Physical Exam General: NAD, VSS Head: normocephalic, atraumatic Eyes: EOMI, PERRLA mouth: Dry mucous membranes Neck: NO CLA, Supple Chest wall: normal rise, no crepitus, no deformity noted Lungs: moving air well, no distress Heart: Tachycardic Abd: soft, nontender, BS normal no CVA tenderness : deferred MSK: strength equal in all four extremities Ext: moves all four extremities, no obvious deformities Skin: cap refill normal, warm, dry neuro : CN2-12 grossly intact, A&Ox3 Psych: normal affect, not anxious - General Limitations: no limitations General appearance: alert, in no apparent distress Course Vital Signs Temperature 100.4 F H 01/17/19 01:05 Pulse Rate 105 01/17/19 01:05 Respiratory Rate 16 01/17/19 01:05 Blood Pressure 156/94 01/17/19 01:05 O2 Sat by Pulse Oximetry 94 01/17/19 01:05 Temperature 100.4 F H 01/17/19 01:05 Pulse Rate 98 01/17/19 01:56 Respiratory Rate 16 01/17/19 01:56 Blood Pressure 144/87 01/17/19 01:56 O2 Sat by Pulse Oximetry 98 01/17/19 01:56 Oxygen Delivery Oxygen Delivery Room Air Medical Decision Making - MDM Narrative Medical decision making narrative: 58-year-old female who presents today stating that she is too hot at home and she think she has urinary tract infection she has been throwing up for 3 days. She states that she feels dehydrated. She states that she does not take good care of herself at home. She has low potassium low magnesium is dehydrated and has a urinary tract infection. She has no belly pain no flank pain. We started her on Rocephin and IV fluids here in the department. I spoke with Dr. Ashraf who agreed to accept the patient on the floor for admission. Orders have been placed. - Medical Records Medical records reviewed: Yes I reviewed the patient's medical records. - Lab Data Lab results reviewed: Yes I reviewed the patient's lab results. Result diagrams: 01/17/19 01:25 01/17/19 01:25 Lab Results 01/17/19 01/17/19 Range/Units 01:25 01:25 WBC 23.0 H (4.3-11.1) K/mcL RBC 5.05 H (3.82-4.97) M/mcL Hgb 14.1 (11.5-15.4) g/dL Hct 41.7 (35.3-44.9) % MCV 82.6 L (83.0-100.0) fL MCH 27.9 L (28.0-33.3) pg MCHC 33.8 (31.6-35.5) g/dL RDW 14.7 H (11.5-14.5) % Plt Count 342 (140-400) K/mcL MPV 10.6 (9.4-12.4) fL Immature Gran % 0.6 (0-4) % Seg Neutrophils % 83.6 % Lymphocytes % 7.3 % Monocytes % 8.1 % Eosinophils % 0.1 % Basophils % 0.3 % Neutrophils # 19.2 H (1.6-8.9) K/mcL Lymphocytes # 1.7 (0.6-4.6) K/mcL Monocytes # 1.9 H (0.0-1.3) K/mcL Eosinophils # 0.0 (0.0-0.6) K/mcL Basophils # 0.1 (0.0-0.2) K/mcL Sodium 131 L (136-145) mEq/L Potassium 2.7 L (3.5-5.1) mEq/L Chloride 91 L (98-107) mEq/L Carbon Dioxide 26 (23-29) mEq/L BUN 10 (6-20) mg/dL Creatinine 0.92 (0.60-1.20) mg/dL Est GFR ( Amer) > 60 (> 60) Est GFR (Non-Af Amer) > 60 (> 60) BUN/Creatinine Ratio 11 (6-26) Glucose 168 H (70-105) mg/dL Calculated Osmolality 275 L (280-300) Calcium 9.3 (8.6-10.3) mg/dL Magnesium 1.4 L (1.6-2.6) mg/dL
[2019-01-17] MEDS ORDERED: Ondansetron 4 MG/2 ML VIAL IVP ONE (01:10)
[2019-01-17] MEDS ORDERED: cefTRIAXone 1,000 MG in Water for inj. (sterile) 10 ML IVP ONE (01:10)
[2019-01-17] MEDS ORDERED: 0.9 % Sodium Chloride 1,000 ML IVC ONE ×2 (01:10→01:55)
[2019-01-17 01:32] LABS: Basophils # 0.1 K/mcL (0.0-0.2); Basophils % 0.3 %; Eosinophils % 0.1 %; Hematocrit 41.7 % (35.3-44.9); Hemoglobin 14.1 g/dL (11.5-15.4); Immature Granulocytes % 0.6 % (0-4); Lymphocytes # 1.7 K/mcL (0.6-4.6); Lymphocytes % 7.3 %; Mean Corpuscular HGB Conc 33.8 g/dL (31.6-35.5); Mean Corpuscular Hemoglobin 27.9 pg (28.0-33.3); Mean Corpuscular Volume 82.6 fL (83.0-100.0); Mean Platelet Volume 10.6 fL (9.4-12.4); Monocytes # 1.9 K/mcL (0.0-1.3); Monocytes % 8.1 %; Neutrophils # 19.2 K/mcL (1.6-8.9); Platelet Count 342 K/mcL (140-400); Red Blood Count 5.05 M/mcL (3.82-4.97); Red Cell Distribution Width 14.7 % (11.5-14.5); Segmented Neutrophils % 83.6 %
[2019-01-17 01:54] LABS: BUN/Creatinine Ratio 11 (6-26); Blood Urea Nitrogen 10 mg/dL (6-20); Calcium 9.3 mg/dL (8.6-10.3); Carbon Dioxide 26 mEq/L (23-29); Chloride 91 mEq/L (98-107); Glucose 168 mg/dL (70-105); Magnesium 1.4 mg/dL (1.6-2.6); Osmolality,Calculated 275 (280-300); Potassium 2.7 mEq/L (3.5-5.1); Sodium 131 mEq/L (136-145); eGFR For African Americans > 60 (> 60); eGFR For Non-African Americans > 60 (> 60)
[2019-01-17 02:33] LABS: Bilirubin,Urine Small (Negative); Blood,Urine Large (Negative); Clarity,Urine Cloudy (Clear); Color,Urine Yellow (Yellow); Glucose,Urine (UA) Normal (Normal); Ketones,Urine Trace mg/dL (Negative); Leukocyte Esterase,Urine Large (Negative); Nitrite,Urine Negative (Negative); Protein,Urine >=300 mg/dL (Neg-Trace); Specific Gravity,Urine 1.025 (1.010-1.025); Urobilinogen,Urine >=8.0 mg/dL (Normal)
[2019-01-17 02:36] LABS: WBC,Urine TNTC per hpf (0-3)
[2019-01-17] MEDS ORDERED: MOM Conc 10 ML UD.LIQ PO PRN (02:42)
[2019-01-17] MEDS ORDERED: Ondansetron 4 MG/2 ML VIAL IVP PRN (02:42)
[2019-01-17] MEDS ORDERED: Naloxone 0.4 MG/ML INJ IVP PRN (02:42)
[2019-01-17] MEDS ORDERED: Mag Hydrox/Al Hydrox/Simeth 30 ML UDC PO PRN (02:42)
[2019-01-17] MEDS ORDERED: traMADol 50 MG TABLET PO PRN (02:42)
[2019-01-17] MEDS: 0.9 % Sodium Chloride 1,000 ML IVC SCH ×2 (06:26→10:04)
[2019-01-17] MEDS: Acetaminophen 325 MG TABLET PO PRN ×2 (07:18→18:34)
--- NOTE | 2019-01-17 09:20 | Internal Med History&Physical ---
Date of Encounter: 01/17/19 Time of Encounter: 08:55 Assessment and Plan (1) Pyelonephritis Current visit: Yes Status: Acute She was given Rocephin and Zithromax IV. Lactobacillus will be added. Urine and blood cultures have been ordered. (2) ASHD (arteriosclerotic heart disease) Current visit: Yes Status: Chronic Status post [place]/CABG 2001. Start aspirin 81 mg daily. (3) Weight loss Current visit: Yes Status: Acute CT of chest abdomen pelvis have been ordered. TSH will be checked. (4) DM type 2 (diabetes mellitus, type 2) Current visit: Yes Status: Chronic Hemoglobin A1c will be checked in a.m. Continue metformin and Accu-Cheks with SSI. Qualifiers: Diabetes mellitus termite control representative insulin use: without fpc use Diabetes mellitus complication status: without complication Qualified Code(s): E11.9 - Type 2 diabetes mellitus without complications (5) Hyperlipidemia Current visit: Yes Status: Chronic Continue Lipitor. Qualifiers: Hyperlipidemia type: unspecified Qualified Code(s): E78.5 - Hyperlipidemia, unspecified (6) Anxiety Current visit: Yes Status: Chronic Continue bupropion (7) Depression Current visit: Yes Status: Chronic Continue bupropion Qualifiers: Depression Type: unspecified Qualified Code(s): F32.9 - Major depressive disorder, single episode, unspecified (8) Microcytosis Current visit: Yes Status: Acute Iron studies will be ordered. (9) Hypomagnesemia Current visit: Yes Status: Acute Magnesium level decreased to 1.4. Supplemental magnesium will be given. (10) Hypokalemia Current visit: Yes Status: Acute Likely due to vomiting. Supplemental potassium will be given. (11) Low vitamin B12 level Current visit: Yes Status: Acute B12 level was 195 on 06/11/2018. Recheck today. Internal Medicine - H&P: HPI Chief complaint: UTI, vomiting Admitted From: Emergency Dept Plans for Post Hospital Care: Home History of present illness: Ms. Ramos is a 58 year old female who came to the hospital stating she had one week history of dysuria. She developed nonbloody vomiting approximately 3 days ago associated with lower abdominal pain. When she did not improve her daughter insisted she come to emergency room. She was found to have leukocytosis, hypokalemia, and evidence of UTI. She was admitted to [facility] floor for ongoing care needs. She was hospitalized last at [facility] August 2017 with chest pain. She does not recall that admission but reports significant memory problems since [place] 2001 with cardiopulmonary arrest requiring resuscitation. She denies hematuria dysuria or kidney stones. Past Med Surg Social Fam HX - Past Medical History Medical history: coronary artery disease, diabetes, hyperlipidemia, hypertension, myocardial infarction Additional medical history: severe headaches Psychiatric history: anxiety, depression, prior suicide attempt, previous psychiatric hospitalization - Past Surgical History Surgical History: appendectomy Additional surgical history: T&A. carotid endartectomy - Social History Smoking Status: Current every day smoker Smokeless Tobacco Status: No Alcohol use: none Drug use: marijuana - Family History Mother Adopted: No Living Status: Still Living Hx Family Endocrine Disorder: Yes (diabetes) Father Adopted: No Age: 59 Family Member Ethnicity: Non- Living Status: Hx Family Cancer: Yes Internal Medicine - H&P: Meds Atorvastatin [Lipitor] 40 mg PO HS 01/28/17 [History] Acetaminophen/Butalbital/Caffe [Fioricet] 1 each PO Q6HR #20 tablet 01/29/17 [Rx] Allergy/AdvReac Type Severity Reaction Status Date / Time No Known Allergies Allergy Verified 04/16/15 14:55 All Systems PM: A 10-system review of systems was performed and is negative for pertinent findings except as documented above in the HPI. Review of systems: Review of systems from her August 2017 [facility] hospitalization were reviewed and revised as below. Gen.: Her weight has decreased from 81.647 kg on 09/20/2016 to 69.539 kg today Cardiovascular: She has hypertension and known ASHD status post [place] 2001 followed by CABG surgery at a [facility]. She does not know how many vessels were bypassed. She believes her most recent heart catheter was approximately 2011 at [facility] without recommendation for further intervention. She thinks she has a diagnosis of CHF. She had left carotid endarterectomy remotely. She denies DVT or pulmonary embolus. Respiratory: She has smoked since age 9 up to 1 pack per day. She has not had PFTs and does not wear home oxygen GI: She denies disorders of her liver gallbladder or exocrine pancreas : As per history of present illness Neurologic: She states following a heart attack in 2001 she had cardiopulmonary arrest. She reports significant memory problems since resuscitation with gradual improvement over the years. She denies large distribution strokes or seizures Endocrine: She was diagnosed with DM 2 approximately 2016. She has hype rlipidemia but denies thyroid disease Hematology/oncology: She denies blood disorders cancers or anemia Psychiatric: She has anxiety and depression but denies other mental health issues Musk skeletal: She denies arthritis gout or other bone joint or muscle disorders. - Constitutional Vitals: Temp Pulse Resp BP Pulse Ox 101.7 F H 114 22 123/74 91 01/17/19 06:49 01/17/19 06:49 01/17/19 06:49 01/17/19 06:49 01/17/19 06:49 Exam: Gen.: She is a well-developed well-nourished female lying in bed who appears in no acute distress HEENT: Head is atraumatic and normocephalic. Eyes: EOMI. There is no scleral icterus. Mouth: Mucosa is moist. Neck: Supple and nontender. There is no thyromegaly or adenopathy noted. Heart: Regular without murmurs gallops or ectopics Lungs: No wheezes or crackles are heard. Abdomen:soft and nontender. No masses or guarding are noted. Extremities: There is no cyanosis edema or clubbing noted. Dorsalis pedis and posterior tibial pulses are trace to 1+ palpable bilaterally. Her feet are warm to touch. Neurologic: Mental status: She is talkative but a fair historian. She does not remember many details of her past history. Cranial nerves: Smile is symmetric. Forehead wrinkles bilaterally. Tongue protrudes midline. EOMI. Motor: There is no pronator drift. Cerebellar: Finger to nose is intact bilaterally. Skin: Warm and dry Internal Med - H&P Results - Labs CBC & Chem 7: 01/17/19 01:25 01/17/19 01:25 Labs: Short CBC 01/17/19 Range/Units 01:25 WBC 23.0 H (4.3-11.1) K/mcL Hgb 14.1 (11.5-15.4) g/dL Hct 41.7 (35.3-44.9) % Plt Count 342 (140-400) K/mcL Neutrophils # 19.2 H (1.6-8.9) K/mcL BMP 01/17/19 01:25 Sodium 131 L Potassium 2.7 L Chloride 91 L Carbon Dioxide 26 BUN 10 Creatinine 0.92 Glucose 168 H Calcium 9.3 Urine 01/17/19 Range/Units 01:27 Urine Color Yellow (Yellow) Urine Clarity Cloudy A (Clear) Urine pH 6.0 (5.0-8.0) pH Units Ur Specific Wink 1.025 (1.010-1.025) Urine Protein >=300 H (Neg-Trace) mg/dL Urine Glucose (UA) Normal (Normal) mg/dL - Impressions ITS Impressions Chest CT 01/17/19 07:11 IMPRESSION: Inflammatory changes surrounding the kidneys and bladder suspicious for infection. No acute intrathoracic abnormality. Punctate nonobstructing nephrolithiasis on the left. Cholelithiasis. D/ / Sudheer Barker MD / Sudheer Barker MD Interpreting Provider: Sudheer Barker MD Abdomen/Pelvis CT 01/17/19 07:25
[2019-01-17] MEDS: levoFLOXacin 750 MG/150 ML 750 MG/150 ML BAG IVPB SCH (09:33)
[2019-01-17] MEDS: Potassium Effervescent 25 MEQ TABLET.EFF PO SCH (09:34)
[2019-01-17] MEDS: cefTRIAXone 1,000 MG in Water for inj. (sterile) 10 ML IVP SCH (10:33)
[2019-01-17] MEDS: 0.45 % Sodium Chloride w/KCl 20 MEQ/1,000 ML MLS IVC SCH ×2 (10:34→18:15)
[2019-01-17] MEDS: Lactobacillus 1 EACH CAP.SPRINK PO SCH ×2 (10:34→20:30)
[2019-01-17 10:45] LABS: Thyroid Stimulating Hormone 0.798 mcIU/mL (0.340-5.600)
[2019-01-17] MEDS: *HR* Metformin 500 MG TABLET PO SCH (20:30)
[2019-01-17] MEDS: Magnesium Oxide 400 MG TABLET PO SCH (20:30)
[2019-01-18] MEDS: 0.45 % Sodium Chloride w/KCl 20 MEQ/1,000 ML MLS IVC SCH ×4 (00:34→22:46)
[2019-01-18 06:47] LABS: Basophils # 0.1 K/mcL (0.0-0.2); Basophils % 0.4 %; Eosinophils # 0.1 K/mcL (0.0-0.6); Eosinophils % 0.5 %; Hematocrit 35.2 % (35.3-44.9); Hemoglobin 11.6 g/dL (11.5-15.4); Immature Granulocytes % 0.6 % (0-4); Lymphocytes # 1.3 K/mcL (0.6-4.6); Lymphocytes % 9.8 %; Mean Corpuscular Hemoglobin 28.2 pg (28.0-33.3); Mean Corpuscular Volume 85.6 fL (83.0-100.0); Monocytes # 0.9 K/mcL (0.0-1.3); Platelet Count 241 K/mcL (140-400); Red Blood Count 4.11 M/mcL (3.82-4.97); Segmented Neutrophils % 81.7 %; White Blood Count 13.4 K/mcL (4.3-11.1)
[2019-01-18 07:06] LABS: Alanine Aminotransferase 7 Units/L (7-52); Albumin 2.9 g/dL (3.5-5.7); Albumin/Globulin Ratio 0.9 (1.1-2.2); Alkaline Phosphatase 76 Units/L (34-104); Aspartate Amino Transferase 10 Units/L (13-39); BUN/Creatinine Ratio 13 (6-26); Bilirubin,Total 0.5 mg/dL (0.3-1.0); Blood Urea Nitrogen 9 mg/dL (6-20); Calcium 8.5 mg/dL (8.6-10.3); Carbon Dioxide 26 mEq/L (23-29); Chloride 99 mEq/L (98-107); Globulin 3.3 g/dL (2.4-3.5); Glucose 91 mg/dL (70-105); Osmolality,Calculated 274 (280-300); Potassium 3.2 mEq/L (3.5-5.1); Sodium 133 mEq/L (136-145); Total Protein 6.2 g/dL (6.4-8.9); eGFR For African Americans > 60 (> 60); eGFR For Non-African Americans > 60 (> 60)
[2019-01-18 09:24] LABS: Estimated Average Glucose 134 mg/dl
--- NOTE | 2019-01-18 09:29 | Internal Med Progress Note ---
Date of Encounter: 01/18/19 Time of Encounter: 09:20 - Assessment and plan (1) Pyelonephritis Current Visit: Yes Status: Acute Assessment and plan: January 18. Urine and blood culture report pending. WBC decreased to 13.4 with less left shift. Continue IV Rocephin and Levaquin with lactobacillus. (2) ASHD (arteriosclerotic heart disease) Current Visit: Yes Status: Chronic Assessment and plan: January 18. Status post [place]/CABG 2001. Continue aspirin 81 mg daily. (3) Weight loss Current Visit: Yes Status: Acute Assessment and plan: January 18. CT of chest/abdomen/pelvis unremarkable. TSH was normal. (4) DM type 2 (diabetes mellitus, type 2) Current Visit: Yes Status: Chronic Assessment and plan: January 18. Hemoglobin A1c satisfactory at 6.3%. Continue metformin and Accu- Cheks with SSI Qualifiers: Diabetes mellitus residential insulin use: without exterminator helper use Diabetes mellitus complication status: without complication Qualified Code(s): E11.9 - Type 2 diabetes mellitus without complications (5) Hyperlipidemia Current Visit: Yes Status: Chronic Assessment and plan: January 18. Continue Lipitor Qualifiers: Hyperlipidemia type: unspecified Qualified Code(s): E78.5 - Hyperlipidemia, unspecified (6) Anxiety Current Visit: Yes Status: Chronic Assessment and plan: January 18. Continue bupropion (7) Depression Current Visit: Yes Status: Chronic Assessment and plan: January 18. Continue bupropion Qualifiers: Depression Type: unspecified Qualified Code(s): F32.9 - Major depressive disorder, single episode, unspecified (8) Microcytosis Current Visit: Yes Status: Acute Assessment and plan: January 18. Iron studies show iron 13, transferrin saturation 5%, transferrin 204, and ferritin 138. She will be started on ferrous sulfate with ascorbic acid in a.m. (9) Hypomagnesemia Current Visit: Yes Status: Acute Assessment and plan: January 18. Continue supplemental magnesium. Recheck labs in a.m. (10) Hypokalemia Current Visit: Yes Status: Acute Assessment and plan: January 18. Potassium level increased to 3.2. Continue potassium supplementation and recheck labs in a.m. (11) Low vitamin B12 level Current Visit: Yes Status: Acute Assessment and plan: January 18. B12 level low at 202. She will receive a B12 injection start oral B12 supplementation. - Subjective Interval history: January 18. She has no new complaints and feels better - Constitutional Vitals: Temp Pulse Resp BP Pulse Ox 100.0 F H 86 16 117/74 94 01/18/19 06:48 01/18/19 06:48 01/18/19 06:48 01/18/19 06:48 01/18/19 06:48 Exam: She is resting comfortably in bed and appears in no acute distress. Her affect is bright and cheerful. I reviewed her medications and lab results. Internal Medicine: Result - Labs CBC & Chem 7: 01/18/19 06:10 01/18/19 06:10 Labs: Short CBC 01/18/19 Range/Units 06:10 WBC 13.4 H (4.3-11.1) K/mcL Hgb 11.6 D (11.5-15.4) g/dL Hct 35.2 L (35.3-44.9) % Plt Count 241 (140-400) K/mcL Neutrophils # 11.0 H (1.6-8.9) K/mcL BMP 01/18/19 06:10 Sodium 133 L Potassium 3.2 L Chloride 99 Carbon Dioxide 26 BUN 9 Creatinine 0.71 Glucose 91 Calcium 8.5 L Liver Function 01/18/19 Range/Units 06:10 Total Bilirubin 0.5 (0.3-1.0) mg/dL AST 10 L (13-39) Units/L ALT 7 (7-52) Units/L Alkaline Phosphatase 76 (34-104) Units/L Albumin 2.9 L (3.5-5.7) g/dL Consult Discharge Plan - Plan Referrals: NONE,PCP [Primary Care Provider] - 1 week
[2019-01-18] MEDS: Lactobacillus 1 EACH CAP.SPRINK PO SCH ×2 (09:34→20:28)
[2019-01-18] MEDS: Magnesium Oxide 400 MG TABLET PO SCH ×2 (09:35→20:28)
[2019-01-18] MEDS ORDERED: Cyanocobalamin (B-12) 1,000 MCG/ML VIAL IM ONE ×2 (09:35→15:00)
[2019-01-18] MEDS: Aspirin 81 MG TAB.CHEW PO SCH (09:35)
[2019-01-18] MEDS: Potassium Effervescent 25 MEQ TABLET.EFF PO SCH (09:36)
[2019-01-18] MEDS: cefTRIAXone 1,000 MG in Water for inj. (sterile) 10 ML IVP SCH (09:37)
[2019-01-18] MEDS: levoFLOXacin 750 MG/150 ML 750 MG/150 ML BAG IVPB SCH (09:37)
[2019-01-18] MEDS: *HR* Metformin 500 MG TABLET PO SCH (20:28)
[2019-01-19] MEDS: Acetaminophen 325 MG TABLET PO PRN ×2 (01:31→21:08)
[2019-01-19] MEDS: Ascorbic Acid 500 MG TABLET PO SCH (06:54)
[2019-01-19] MEDS: 0.45 % Sodium Chloride w/KCl 20 MEQ/1,000 ML MLS IVC SCH ×2 (06:54→15:12)
[2019-01-19] MEDS: cefTRIAXone 1,000 MG in Water for inj. (sterile) 10 ML IVP SCH (08:30)
[2019-01-19] MEDS: levoFLOXacin 750 MG/150 ML 750 MG/150 ML BAG IVPB SCH (08:32)
[2019-01-19] MEDS: Lactobacillus 1 EACH CAP.SPRINK PO SCH ×2 (08:34→21:08)
[2019-01-19] MEDS: Cyanocobalamin (B-12) 1,000 MCG TABLET PO SCH (08:34)
[2019-01-19] MEDS: Potassium Effervescent 25 MEQ TABLET.EFF PO SCH (08:35)
[2019-01-19] MEDS: Aspirin 81 MG TAB.CHEW PO SCH (08:35)
[2019-01-19] MEDS: Magnesium Oxide 400 MG TABLET PO SCH ×2 (08:35→21:08)
[2019-01-19 08:59] LABS: Basophils # 0.1 K/mcL (0.0-0.2); Basophils % 0.5 %; Eosinophils # 0.2 K/mcL (0.0-0.6); Eosinophils % 2.1 %; Hematocrit 37.9 % (35.3-44.9); Hemoglobin 12.5 g/dL (11.5-15.4); Immature Granulocytes % 0.5 % (0-4); Lymphocytes # 1.3 K/mcL (0.6-4.6); Lymphocytes % 13.9 %; Mean Corpuscular Hemoglobin 28.6 pg (28.0-33.3); Mean Corpuscular Volume 86.7 fL (83.0-100.0); Mean Platelet Volume 11.1 fL (9.4-12.4); Monocytes # 0.7 K/mcL (0.0-1.3); Monocytes % 7.5 %; Platelet Count 247 K/mcL (140-400); Red Blood Count 4.37 M/mcL (3.82-4.97); Red Cell Distribution Width 15.3 % (11.5-14.5); Segmented Neutrophils % 75.5 %; White Blood Count 9.2 K/mcL (4.3-11.1)
[2019-01-19 09:29] LABS: BUN/Creatinine Ratio 11 (6-26); Blood Urea Nitrogen 8 mg/dL (6-20); Calcium 8.9 mg/dL (8.6-10.3); Carbon Dioxide 25 mEq/L (23-29); Chloride 100 mEq/L (98-107); Glucose 98 mg/dL (70-105); Magnesium 1.7 mg/dL (1.6-2.6); Osmolality,Calculated 276 (280-300); Potassium 3.7 mEq/L (3.5-5.1); Sodium 134 mEq/L (136-145); eGFR For African Americans > 60 (> 60); eGFR For Non-African Americans > 60 (> 60)
--- NOTE | 2019-01-19 09:45 | Internal Med Progress Note ---
Date of Encounter: 01/19/19 Time of Encounter: 09:38 - Assessment and plan (1) Pyelonephritis Current Visit: Yes Status: Acute Assessment and plan: January 18. Urine and blood culture report pending. WBC decreased to 13.4 with less left shift. Continue IV Rocephin and Levaquin with lactobacillus. January 19. Urine culture shows gram-negative rods with final ID and sensitivity pending. Continue Rocephin and Levaquin with lactobacillus. (2) ASHD (arteriosclerotic heart disease) Current Visit: Yes Status: Chronic Assessment and plan: January 18. Status post [place]/CABG 2001. Continue aspirin 81 mg daily. (3) Weight loss Current Visit: Yes Status: Acute Assessment and plan: January 18. CT of chest/abdomen/pelvis unremarkable. TSH was normal. (4) DM type 2 (diabetes mellitus, type 2) Current Visit: Yes Status: Chronic Assessment and plan: January 18. Hemoglobin A1c satisfactory at 6.3%. Continue metformin and Accu- Cheks with SSI Qualifiers: Diabetes mellitus fci insulin use: without fci use Diabetes mellitus complication status: without complication Qualified Code(s): E11.9 - Type 2 diabetes mellitus without complications (5) Hyperlipidemia Current Visit: Yes Status: Chronic Assessment and plan: January 18. Continue Lipitor Qualifiers: Hyperlipidemia type: unspecified Qualified Code(s): E78.5 - Hyperlipidemia, unspecified (6) Anxiety Current Visit: Yes Status: Chronic Assessment and plan: January 18. Continue bupropion (7) Depression Current Visit: Yes Status: Chronic Assessment and plan: January 18. Continue bupropion Qualifiers: Depression Type: unspecified Qualified Code(s): F32.9 - Major depressive disorder, single episode, unspecified (8) Microcytosis Current Visit: Yes Status: Acute Assessment and plan: January 18. Iron studies show iron 13, transferrin saturation 5%, transferrin 204, and ferritin 138. She will be started on ferrous sulfate with ascorbic acid in a.m. (9) Hypomagnesemia Current Visit: Yes Status: Acute Assessment and plan: January 18. Continue supplemental magnesium. Recheck labs in a.m. January 19. Magnesium level normal at 1.7. Continue supplemental magnesium oxide. (10) Hypokalemia Current Visit: Yes Status: Acute Assessment and plan: January 18. Potassium level increased to 3.2. Continue potassium supplementation and recheck labs in a.m. January 19. Potassium level normal at 3.7. Continue present Rx. (11) Low vitamin B12 level Current Visit: Yes Status: Acute Assessment and plan: January 18. B12 level low at 202. She will receive a B12 injection start oral B12 supplementation. - Subjective Interval history: January 18. She has no new complaints and feels better January 19. She has no new complaints. - Constitutional Vitals: Temp Pulse Resp BP Pulse Ox 98.0 F 65 18 108/77 99 01/19/19 06:24 01/19/19 06:24 01/19/19 06:24 01/19/19 06:24 01/19/19 06:24 Exam: She is resting comfortably in bed and appears in no acute distress. She denies pain or dyspnea. I reviewed her medications and lab results. Internal Medicine: Result - Labs CBC & Chem 7: 01/19/19 08:49 01/19/19 08:49 Labs: Short CBC 01/19/19 Range/Units 08:49 WBC 9.2 (4.3-11.1) K/mcL Hgb 12.5 (11.5-15.4) g/dL Hct 37.9 (35.3-44.9) % Plt Count 247 (140-400) K/mcL Neutrophils # 7.0 (1.6-8.9) K/mcL BMP 01/19/19 08:49 Sodium 134 L Potassium 3.7 Chloride 100 Carbon Dioxide 25 BUN 8 Creatinine 0.70 Glucose 98 Calcium 8.9 Consult Discharge Plan - Plan Referrals: NONE,PCP [Primary Care Provider] - 1 week
[2019-01-19] MEDS: Ondansetron 4 MG/2 ML VIAL IVP PRN (09:54)
[2019-01-19] MEDS: *HR* Metformin 500 MG TABLET PO SCH (21:08)
[2019-01-20] MEDS: Ascorbic Acid 500 MG TABLET PO SCH (05:49)
[2019-01-20] MEDS: *HR* Enoxaparin 40 MG/0.4 ML SYRINGE SQ SCH (05:49)
[2019-01-20 08:09] LABS: Basophils # 0.1 K/mcL (0.0-0.2); Basophils % 0.7 %; Eosinophils # 0.3 K/mcL (0.0-0.6); Eosinophils % 2.8 %; Hematocrit 34.5 % (35.3-44.9); Hemoglobin 11.7 g/dL (11.5-15.4); Immature Granulocytes % 0.7 % (0-4); Lymphocytes # 1.3 K/mcL (0.6-4.6); Lymphocytes % 14.9 %; Mean Corpuscular HGB Conc 33.9 g/dL (31.6-35.5); Mean Corpuscular Hemoglobin 28.3 pg (28.0-33.3); Mean Corpuscular Volume 83.3 fL (83.0-100.0); Mean Platelet Volume 10.7 fL (9.4-12.4); Monocytes # 0.9 K/mcL (0.0-1.3); Monocytes % 9.8 %; Neutrophils # 6.3 K/mcL (1.6-8.9); Platelet Count 274 K/mcL (140-400); Red Blood Count 4.14 M/mcL (3.82-4.97); Red Cell Distribution Width 14.6 % (11.5-14.5); Segmented Neutrophils % 71.1 %; White Blood Count 8.8 K/mcL (4.3-11.1)
[2019-01-20 08:31] LABS: BUN/Creatinine Ratio 11 (6-26); Blood Urea Nitrogen 7 mg/dL (6-20); Calcium 8.7 mg/dL (8.6-10.3); Carbon Dioxide 25 mEq/L (23-29); Chloride 102 mEq/L (98-107); Glucose 111 mg/dL (70-105); Osmolality,Calculated 281 (280-300); Potassium 3.3 mEq/L (3.5-5.1); Sodium 136 mEq/L (136-145); eGFR For African Americans > 60 (> 60); eGFR For Non-African Americans > 60 (> 60)
[2019-01-20] MEDS: Aspirin 81 MG TAB.CHEW PO SCH (09:36)
[2019-01-20] MEDS: Magnesium Oxide 400 MG TABLET PO SCH ×2 (09:36→20:39)
[2019-01-20] MEDS: Cyanocobalamin (B-12) 1,000 MCG TABLET PO SCH (09:36)
[2019-01-20] MEDS: Lactobacillus 1 EACH CAP.SPRINK PO SCH ×2 (09:37→20:39)
[2019-01-20] MEDS: Potassium Effervescent 25 MEQ TABLET.EFF PO SCH (09:39)
[2019-01-20] MEDS: cefTRIAXone 1,000 MG in Water for inj. (sterile) 10 ML IVP SCH (09:39)
[2019-01-20] MEDS: levoFLOXacin 750 MG/150 ML 750 MG/150 ML BAG IVPB SCH (09:46)
[2019-01-20] MEDS ORDERED: Potassium Effervescent 25 MEQ TABLET.EFF PO ONE (10:35)
--- NOTE | 2019-01-20 11:22 | Internal Med Progress Note ---
Date of Encounter: 01/20/19 Time of Encounter: 11:10 - Assessment and plan (1) Pyelonephritis Current Visit: Yes Status: Acute Assessment and plan: January 18. Urine and blood culture report pending. WBC decreased to 13.4 with less left shift. Continue IV Rocephin and Levaquin with lactobacillus. January 19. Urine culture shows gram-negative rods with final ID and sensitivity pending. Continue Rocephin and Levaquin with lactobacillus. January 20. Urine culture showed Escherichia coli and strep agalactiae. Discontinue Rocephin. Continue Levaquin. (2) ASHD (arteriosclerotic heart disease) Current Visit: Yes Status: Chronic Assessment and plan: January 18. Status post [place]/CABG 2001. Continue aspirin 81 mg daily. (3) Weight loss Current Visit: Yes Status: Acute Assessment and plan: January 18. CT of chest/abdomen/pelvis unremarkable. TSH was normal. (4) DM type 2 (diabetes mellitus, type 2) Current Visit: Yes Status: Chronic Assessment and plan: January 18. Hemoglobin A1c satisfactory at 6.3%. Continue metformin and Accu- Cheks with SSI Qualifiers: Diabetes mellitus junior automation engineer insulin use: without junior automation engineer use Diabetes mellitus complication status: without complication Qualified Code(s): E11.9 - Type 2 diabetes mellitus without complications (5) Hyperlipidemia Current Visit: Yes Status: Chronic Assessment and plan: January 18. Continue Lipitor Qualifiers: Hyperlipidemia type: unspecified Qualified Code(s): E78.5 - Hyperlipidemia, unspecified (6) Anxiety Current Visit: Yes Status: Chronic Assessment and plan: January 18. Continue bupropion (7) Depression Current Visit: Yes Status: Chronic Assessment and plan: January 18. Continue bupropion Qualifiers: Depression Type: unspecified Qualified Code(s): F32.9 - Major depressive disorder, single episode, unspecified (8) Microcytosis Current Visit: Yes Status: Acute Assessment and plan: January 18. Iron studies show iron 13, transferrin saturation 5%, transferrin 204, and ferritin 138. She will be started on ferrous sulfate with ascorbic acid in a.m. (9) Hypomagnesemia Current Visit: Yes Status: Acute Assessment and plan: January 18. Continue supplemental magnesium. Recheck labs in a.m. January 19. Magnesium level normal at 1.7. Continue supplemental magnesium oxide. January 20. Recheck labs in a.m. (10) Hypokalemia Current Visit: Yes Status: Acute Assessment and plan: January 18. Potassium level increased to 3.2. Continue potassium supplementation and recheck labs in a.m. January 19. Potassium level normal at 3.7. Continue present Rx. January 20. Potassium level slightly low at 3.3 today. Additional potassium will be given. Recheck labs in a.m. (11) Low vitamin B12 level Current Visit: Yes Status: Acute Assessment and plan: January 18. B12 level low at 202. She will receive a B12 injection start oral B12 supplementation. - Subjective Interval history: January 18. She has no new complaints and feels better January 19. She has no new complaints. January 20. She reports 2-3 episodes of vomiting earlier today. She denies significant pain or dyspnea. - Constitutional Vitals: Temp Pulse Resp BP Pulse Ox 98.8 F 67 18 129/75 97 01/20/19 09:34 01/20/19 09:34 01/20/19 09:34 01/20/19 09:34 01/20/19 09:34 Exam: She is resting comfortably in bed and appears in no acute distress. Abdomen shows bowel sounds present. Abdomen is soft and nontender to palpation. Her affect is bright and cheerful. I reviewed her medications and lab results. Internal Medicine: Result - Labs CBC & Chem 7: 01/20/19 07:55 01/20/19 07:55 Labs: Short CBC 01/20/19 Range/Units 07:55 WBC 8.8 (4.3-11.1) K/mcL Hgb 11.7 (11.5-15.4) g/dL Hct 34.5 L (35.3-44.9) % Plt Count 274 (140-400) K/mcL Neutrophils # 6.3 (1.6-8.9) K/mcL BMP 01/20/19 07:55 Sodium 136 Potassium 3.3 L Chloride 102 Carbon Dioxide 25 BUN 7 Creatinine 0.66 Glucose 111 H Calcium 8.7 Consult Discharge Plan - Plan Referrals: NONE,PCP [Primary Care Provider] - 1 week
[2019-01-20] MEDS: Ondansetron 4 MG/2 ML VIAL IVP PRN ×2 (11:31→20:39)
[2019-01-20] MEDS: *HR* Metformin 500 MG TABLET PO SCH (20:39)
[2019-01-21] MEDS: *HR* Enoxaparin 40 MG/0.4 ML SYRINGE SQ SCH (06:03)
[2019-01-21] MEDS: Ascorbic Acid 500 MG TABLET PO SCH (06:03)
[2019-01-21 06:14] LABS: Hematocrit 35.5 % (35.3-44.9); Hemoglobin 11.7 g/dL (11.5-15.4); Mean Corpuscular Volume 84.9 fL (83.0-100.0); Mean Platelet Volume 11.4 fL (9.4-12.4); Platelet Count 300 K/mcL (140-400); Red Blood Count 4.18 M/mcL (3.82-4.97); Red Cell Distribution Width 15.4 % (11.5-14.5); White Blood Count 9.9 K/mcL (4.3-11.1)
[2019-01-21 06:33] LABS: Alanine Aminotransferase 11 Units/L (7-52); Albumin/Globulin Ratio 0.8 (1.1-2.2); Alkaline Phosphatase 102 Units/L (34-104); Aspartate Amino Transferase 18 Units/L (13-39); BUN/Creatinine Ratio 11 (6-26); Blood Urea Nitrogen 8 mg/dL (6-20); Calcium 9.3 mg/dL (8.6-10.3); Carbon Dioxide 26 mEq/L (23-29); Chloride 101 mEq/L (98-107); Globulin 3.6 g/dL (2.4-3.5); Glucose 102 mg/dL (70-105); Magnesium 1.4 mg/dL (1.6-2.6); Osmolality,Calculated 281 (280-300); Potassium 3.4 mEq/L (3.5-5.1); Sodium 136 mEq/L (136-145); Total Protein 6.6 g/dL (6.4-8.9); eGFR For African Americans > 60 (> 60); eGFR For Non-African Americans > 60 (> 60)
[2019-01-21] MEDS ORDERED: Ondansetron ODT 4 MG TAB.RAPDIS PO PRN (06:38)
[2019-01-21 06:40] LABS: Bilirubin,Total 0.2 mg/dL (0.3-1.0)
[2019-01-21 07:13] VITALS: BP 110/74
[2019-01-21 07:49] LABS: Eosinophils # 0.2 K/mcL (0.0-0.6); Lymphocytes # 2.6 K/mcL (0.6-4.6); Monocytes # 0.8 K/mcL (0.0-1.3); Neutrophils # 6.3 K/mcL (1.6-8.9)
[2019-01-21 07:50] LABS: Platelet Estimate Normal (Normal); Reactive Lymphocytes Present (Not Present)
--- NOTE | 2019-01-21 09:43 | Discharge Summary ---
Orders not resulted at time of discharge: Pending orders 01/17/19 02:12 Culture,Blood [] Stat Date of Encounter: 01/21/19 Time of Encounter: 09:29 - Discharge Diagnosis (1) Pyelonephritis Priority: Primary Status: Acute (2) ASHD (arteriosclerotic heart disease) Priority: Secondary Status: Chronic (3) Weight loss Priority: Secondary Status: Acute (4) DM type 2 (diabetes mellitus, type 2) Priority: Secondary Status: Chronic Qualifiers: Diabetes mellitus ad terminal makeup operator insulin use: without half-way use Diabetes mellitus complication status: without complication Qualified Code(s): E11.9 - Type 2 diabetes mellitus without complications (5) Hyperlipidemia Priority: Secondary Status: Chronic Qualifiers: Hyperlipidemia type: unspecified Qualified Code(s): E78.5 - Hyperlipidemia, unspecified (6) Anxiety Priority: Secondary Status: Chronic (7) Depression Priority: Secondary Status: Chronic Qualifiers: Depression Type: unspecified Qualified Code(s): F32.9 - Major depressive disorder, single episode, unspecified (8) Microcytosis Priority: Secondary Status: Acute (9) Hypomagnesemia Priority: Secondary Status: Acute (10) Hypokalemia Priority: Secondary Status: Acute (11) Low vitamin B12 level Priority: Secondary Status: Acute Hospital course: Ms. Ramos is a 58 year old female who came to the hospital stating she had one week history of dysuria. She developed nonbloody vomiting approximately 3 days ago associated with lower abdominal pain. When she did not improve her daughter insisted she come to emergency room. She was found to have leukocytosis, hypokalemia, and evidence of UTI. She was admitted to [facility] floor for ongoing care needs. Initial orders were written by the emergency room physician. I saw her on January 17 and performed the history and physical. She was started empirically on Rocephin and Zithromax for UTI. Lactobacillus was given. Urine culture returned showing Escherichia coli and strep agalactiae with sensitivity to Levaquin. She had good clinical response to treatment with normalization of leukocytosis and left shift of discharge. She will continue with Levaquin and probiotic for 6 additional days at discharge. Supplemental potassium was given and hypokalemia improved with potassium level rising to 3.4 by day of discharge. She will continue supplemental potassium for 7 days at home. Her PCP can monitor labs. Magnesium level returned low at 1.4. She was started on magnesium oxide 400 mg b.i.d. and this will be continued for 7 days. Her PCP can monitor. Anemia testing showed iron 13, transferrin saturation 5%, transferrin 204, ferritin 138, and B12 202. She was given a B12 injection started on oral B12 supplement. She was also given oral ferrous sulfate with ascorbic acid. These will be continued at discharge. TSH returned normal at 0.798. She had residual nausea present on day of discharge but reported no vomiting. She will be given Phenergan to use as needed for the nausea. When I saw her January 21 she felt improved and wished to be discharged home. She will follow with her PCP Talya Blue CNP within 1 week. I encouraged her to become a nonsmoker. Room air oximetry will be checked on 6 minute walk prior to discharge. - Time Spent with Patient Total time spent providing and/or coordinating discharge services: - Discharge Medications Prescriptions: New Aspirin 81 mg PO DAILY tab.chew Lactobacillus [Culturelle] 1 each PO BID #12 cap.sprink Ferrous Sulfate 325 mg PO DAILY@0630 #30 tablet Potassium Effervescent [Klyte] 25 meq PO DAILY #7 tablet.eff levoFLOXacin [Levaquin] 750 mg PO DAILY #6 tablet Magnesium Oxide [Mag-Ox] 400 mg PO BID #14 tablet Promethazine [Phenergan] 12.5 mg PO Q6HR PRN #10 tablet PRN Reason: Nausea Cyanocobalamin (B-12) [Vitamin B12] 1,000 mcg PO DAILY #30 tablet Ascorbic Acid [Vitamin C] 500 mg PO DAILY@0630 #30 tablet Continued Atorvastatin [Lipitor] 40 mg PO HS Acetaminophen/Butalbital/Caffe [Fioricet] 1 each PO Q6HR #20 tablet Home Medications: Atorvastatin [Lipitor] 40 mg PO HS 01/28/17 [History] Acetaminophen/Butalbital/Caffe [Fioricet] 1 each PO Q6HR #20 tablet 01/29/17 [Rx] Ascorbic Acid [Vitamin C] 500 mg PO DAILY@0630 #30 tablet 01/21/19 [Rx] Aspirin 81 mg PO DAILY tab.chew 01/21/19 [Rx] Cyanocobalamin (B-12) [Vitamin B12] 1,000 mcg PO DAILY #30 tablet 07/24/19 [Rx] Ferrous Sulfate 325 mg PO DAILY@0630 #30 tablet 01/21/19 [Rx] Lactobacillus [Culturelle] 1 each PO BID #12 cap.sprink 01/21/19 [Rx] Magnesium Oxide [Mag-Ox] 400 mg PO BID #14 tablet 01/21/19 [Rx] Potassium Effervescent [Klyte] 25 meq PO DAILY #7 tablet.eff 01/21/19 [Rx] Promethazine [Phenergan] 12.5 mg PO Q6HR PRN #10 tablet 01/21/19 [Rx] levoFLOXacin [Levaquin] 750 mg PO DAILY #6 tablet 01/21/19 [Rx] Allergies/Adverse Reactions: Allergy/AdvReac Type Severity Reaction Status Date / Time No Known Allergies Allergy Verified 04/16/15 14:55 Date of admission: 01/17/19 09:37 Primary care physician: Talya Blue MECHANICAL TECHNICAL SERVICE SPECIALIST - Constitutional Vitals: Temp Pulse Resp BP Pulse Ox 98.9 F 66 18 110/74 94 01/21/19 07:11 01/21/19 07:11 01/21/19 07:11 01/21/19 07:11 01/21/19 07:11 - Patient Status Disposition: Home, Self-Care Condition: Fair - Discharge Instructions Follow Up With: NONE,PCP [Primary Care Provider] - 1 week - Diet and Activity Activity: resume usual activities as tolerated Diet: advance to your usual diet
[2019-01-21] MEDS: Aspirin 81 MG TAB.CHEW PO SCH (09:47)
[2019-01-21] MEDS: Lactobacillus 1 EACH CAP.SPRINK PO SCH (09:47)
[2019-01-21] MEDS: Magnesium Oxide 400 MG TABLET PO SCH (09:47)
[2019-01-21] MEDS: Potassium Effervescent 25 MEQ TABLET.EFF PO SCH (09:48)
[2019-01-21] MEDS: Cyanocobalamin (B-12) 1,000 MCG TABLET PO SCH (09:48)
[2019-01-21] MEDS: levoFLOXacin 750 MG/150 ML 750 MG/150 ML BAG IVPB SCH (09:49)
== END 2019-01-21 11:28 | disposition home or self-care (01) | DRG 690 ==
LOC: EMEROOPIK 01:04 → INPPIK 01:04
PROVIDERS: ADMIT Internal Medicine; ATTEND Internal Medicine